=== PATIENT | male | born 1940 | race Caucasian/White ===

== ENCOUNTER 2017-12-30 17:35 | Observation (INO) | payer OTHER ==
--- OUTSIDE RECORDS SUMMARY | 2017-12-30 17:37 | XMS REPORT | Clinical Summary ---
:1940 Author Organization [facility] Address [address] [place] [address] Care Team Providers Name Role Phone Jan Holden MD Primary Care Provider Allergies Active Allergy Reactions Severity Noted Date Comments No Known Drug Allergies 07/03/2016 Current Medications Prescription Sig. Disp. Refills Start Date End Date Status aspirin (ADULT LOW DOSE 81 mg once Active ASPIRIN) 81 MG enteric daily coated tablet ibuprofen-famotidine Take 1 Active (DUEXIS) 800-26.6 mg tablet as tablet needed by oral route. hydrochlorothiazide Take 1 Active (HYDRODIURIL) 25 MG tablet tablet every day by oral route. valsartan (DIOVAN) 320 Take 1 Active MG tablet tablet every day by oral route. metoprolol tartrate Take 1 180 tablet 3 02/09/2017 Active (LOPRESSOR) 50 mg tablet tablet (50 mg total) by mouth 2 (two) times a day. simvastatin (ZOCOR) 40 Take 1 90 tablet 3 03/11/2017 Active MG tabletIndications: tablet (40 Hyperlipidemia, mg total) unspecified by mouth hyperlipidemia type daily. metoprolol tartrate Take 100 mg 02/10/20 Discontinued (LOPRESSOR) 100 MG by mouth 2 17 tablet (two) times a day. metoprolol tartrate Take 1 02/10/20 Discontinued (LOPRESSOR) 50 MG tablet tablet 17 twice a day by oral route. simvastatin (ZOCOR) 40 Take 1 03/11/20 Discontinued MG tablet tablet 17 every day by oral route. Active Problems Problem Noted Date Carotid atherosclerosis Bilateral 07/03/2016 Coronary arteriosclerosis 07/03/2016 Dyslipidemia 07/03/2016 Essential hypertension 07/03/2016 Gastroesophageal reflux disease 07/03/2016 Peripheral arterial occlusive disease 07/03/2016 Presence of stent in coronary artery 07/03/2016 Encounters Date Type Specialty Care Team Description 03/11/2017 Refill Cardiology Radha Schmidt MA Med Refill 02/09/2017 Orders Only Cardiology Kandace Sherwood MA after 12/29/2016 Family History Medical History Relation Name Comments Heart disease Brother Lung cancer Father possible Heart disease Sister Relation Name Status Comments Brother (Age 68) Father Sister (Age 68) Social History Tobacco Use Types Packs/Day Years Used Date Former Smoker 23 Smokeless Tobacco: Never Used Alcohol Use Drinks/Week oz/Week Comments Yes occasional Sex Assigned at Date Recorded Not on file Last Filed Vital Signs Not on file Plan of Treatment Health Maintenance Due Date Last Done Comments SHINGRIX VACCINE (#1) 1991 ZOSTER VACCINE 2001 PNEUMOCOCCAL POLYSACCHARIDE VACCINE AGE 65 AND OVER 2006 PNEUMOCOCCAL-13 2006 INFLUENZA VACCINE 03/16/2018 Results Not on fileafter 12/29/2016 Insurance Payer Benefit Plan / Group Subscriber ID Type Phone Address COMMERCIAL MISC MISC COMMERCIAL xxxxxxxxxxxx Commercial MEDICARE MEDICARE PART A AND B xxxxxxxxxx Medicare [place], [place] Home: [address] [phone] [place], [place] [phone]
[2017-12-30] MEDS ORDERED: NA CHLORIDE 0.9% 500 ML ONE (18:39)
[2017-12-30] MEDS ORDERED: ONDANSETRON 4 MG/2 ML VIAL ONE (18:39)
[2017-12-30 18:49] LABS: Absolute Monocytes 0.3 K/uL (0.1-1.3); Absolute Neutrophil 13.3 K/uL (1.8-8.0); Basophils % 0.3 % (0-1.3); Eosinophils % 0.9 % (0-4.4); Hematocrit 43.4 % (39.6-49.0); Lymphocytes % 6.7 % (15.3-44.8); MCH 28.8 pg (27.0-35.0); MCV 86.9 fL (80-100); MPV 10.1 fL (7.6-11.3); Monocytes % 2.1 % (3.3-12.3); RBC Red Blood Cell Count 4.99 M/uL (4.33-5.43)
[2017-12-30 18:50] LABS: Potassium 3.5 mEq/L (3.6-5.0)
[2017-12-30 18:56] LABS: Albumin 4.5 g/dL (3.2-5.5); Bilirubin Direct 0.2 mg/dL (0-0.2); Bilirubin Total 0.8 mg/dL (0.3-1.2); Protein, Total 7.9 g/dL (6.0-8.3)
[2017-12-30 18:58] LABS: Urine Blood NEGATIVE (NEG); Urine Glucose NEGATIVE (NEG); Urine Protein NEGATIVE (NEG); Urine Specific Gravity 1.015 (1.005-1.030)
[2017-12-30 18:58] LABS: Urine Bacteria <20 /HPF (NONE SEEN); Urine Culture Reflex Order NOT NEEDED; Urine RBC NONE SEEN /HPF (NONE SEEN)
[2017-12-30 19:30] LABS: Blood Morphology Comment NOT SEEN (NOT SEEN); Platelet Estimate ADEQ; Urine White Blood Cell Casts OK
--- NOTE | 2017-12-30 20:05 | RAD REPORT ---
EXAM DESCRIPTION: RAD - Chest Single View - 12/30/2017 6:47 pm CLINICAL HISTORY: Chills, cough and congestion COMPARISON: February 2011 TECHNIQUE: AP portable chest image was obtained 1836 hours . FINDINGS: Normal lung volumes seen. No peripheral consolidation or failure finding. 12 millimeter ro unded mass in the left midlung field is superimposed on the posterior left seventh rib. The cortex of the rib is offset and this is believed to be callus and remodeling from a rib fracture. Correlation is needed with any history of rib fracture or posterior mid chest pain symptoms. Trachea is midline. Heart and vasculature are normal. No measurable pleural effusion and no pneumotho rax. No acute aortic findings suspected. IMPRESSION: No acute cardiopulmonary process. Small rounded mass in the left midlung field is believed to be callus formation and remodeling of the posterior left seventh rib fracture. Correlation is needed with matching history.
--- NOTE | 2017-12-30 20:12 | RAD REPORT ---
EXAM DESCRIPTION: CT - Abdomen Pelvis W Contrast - 12/30/2017 7:59 pm CLINICAL HISTORY: Abdominal pain, nausea, chills, dysuria, body aches, history of prostate and bladd er cancer and prior cholecystectomy COMPARISON: None. TECHNIQUE: Biphasic, helical CT imaging of the abdomen and pelvis was performed following 100 ml non -ionic IV contrast. Oral contrast was given. All CT scans are performed using dose optimization technique as appropriate and may include automated exposure control or mA/KV adjustment according to patient size. FINDINGS: No suspicious findings in the lung bases. The liver, spleen, and pancreas show no suspicious findings. Cholecystectomy clips are present. No bi liary tree dilatation. Symmetric renal function is seen with no hydronephrosis or suspicious renal mass. No pyelonephritis o r acute renal parenchymal process. No urinary bladder abnormality. Prostatectomy changes are present. No pelvic floor mass or lymphadenopathy. No dilated bowel loops or bowel wall thickening. No free air, free fluid or inflammatory stranding. No hernia, mass or bulky lymphadenopathy. No adrenal abnormality. Testicles are seen in the inguinal fatty tissues. No mass. No abnormal inguinal lymphadenopathy. There are several small inguinal lymph nodes present. No suspicious bony findings. IMPRESSION: No pyelonephritis, cystitis or other acute finding. Remainder the study, as detailed above, is without acute or suspicious finding.
[2017-12-30] MEDS ORDERED: FAMOTIDINE 20 MG/2 ML VIAL IV ONE (20:14)
[2017-12-30] MEDS ORDERED: NS KCL 20MEQ 1,000 ML IV ONE (20:14)
[2017-12-30] MEDS ORDERED: Levofloxacin500mg IV 500 MG/100 ML BAG IV ONE (20:14)
[2017-12-30] MEDS ORDERED: NA CHLORIDE 0.9% 1,000 ML ONE (20:15)
[2017-12-30] MEDS ORDERED: METRONIDAZOLE 500mg IVPB 500 MG/100 ML BAG IV ONE (20:15)
--- NOTE | 2017-12-30 20:15 | EDPHYS ---
Physician Documentation [facility] Name: Andrei Escobar Age: 77 yrs Sex: Male : 1940 Arrival Date: 12/30/2017 Time: 17:38 Bed 2 Private MD: Jan Holden T ED Physician Yohan Johnson HPI: 12/30 18:35 This 77 yrs old Male presents to ER via Ambulatory with complaints of rn Nausea/Vomiting/Diarrhea, Chills,Body Aches. 18:35 The patient presents to the emergency department with nausea, vomiting, diarrhea. rn Onset: The symptoms/episode began/occurred today. Possible causes: unknown. Associated signs and symptoms: Pertinent positives: diarrhea, nausea, vomiting. Severity of symptoms: At their worst the symptoms were moderate in the emergency department the symptoms have improved. The patient has not experienced similar symptoms in the past. Reports sudden onset of chills, nausea/vomiting/diarrhea, began today, only a little abd discomfort, no prostate, + increased urinary frequency, no chest pain, + mild cough, + hx of smoking. . Historical: - Allergies: 18:01 No Known Allergies; aj - Home Meds: 18:01 aspirin 81 mg Oral chew [Active]; Hydrochlorothiazide Oral [Active]; losartan Oral aj [Active]; Metoprolol Tartrate Oral [Active]; Simvastatin Oral [Active]; - PMHx: 18:01 Hyperlipidemia; Hypertension; aj - PSHx: 18:01 prostate and bladder cancer surgery; Cholecystectomy; Heart stents; Knee surgery; aj - Immunization history:: Adult Immunizations up to date. - Social history:: Smoking status: Patient/guardian denies using tobacco. - Family history:: not pertinent. - Hospitalizations: : No recent hospitalization is reported. ROS: 18:35 Constitutional: Negative for fever, and weight loss, Eyes: Negative for injury, pain, rn redness, and discharge, Neck: Negative for injury, pain, and swelling, Cardiovascular: Negative for chest pain, palpitations, and edema, Respiratory: + cough, neg for sob Abdomen/GI: Negative for constipation MS/Extremity: Negative for injury and deformity, Skin: Negative for injury, rash, and discoloration, Neuro: Negative for headache, numbness, tingling, and seizure, + generalized weakness Exam: 18:35 Constitutional: This is a well developed, well nourished patient who is awake, alert, rn and in no acute distress. Head/Face: Normocephalic, atraumatic. Eyes: Pupils equal round and reactive to light, extra-ocular motions intact. Lids and lashes normal. Conjunctiva and sclera are non-icteric and not injected. Cornea within normal limits. Periorbital areas with no swelling, redness, or edema. ENT: dry MM, no stridor Neck: Trachea midline, no thyromegaly or masses palpated, and no cervical lymphadenopathy. Supple, full range of motion without nuchal rigidity, or vertebral point tenderness. No Meningismus. Cardiovascular: tachycardic, regular, no murmur Respiratory: + mild tachypnea, faint exp wheezing, no retractions, speaking full sentences Abdomen/GI: soft, mild lower abd tenderness, no rebound/masses MS/ Extremity: Pulses equal, no cyanosis. Neurovascular intact. Full, normal range of motion. Equal circumference. Neuro: Awake and alert, GCS 15, oriented to person, place, time, and situation. Cranial nerves II-XII grossly intact. Motor strength 5/5 in all extremities. Sensory grossly intact. Vital Signs: 18:01 BP 186 / 92; Pulse 125; Resp 26; Temp 99.7; Pulse Ox 99% on R/A; Weight 123.38 kg; aj Height 6 ft. 2 in. (187.96 cm); 19:36 BP 160 / 87; Pulse 122; Resp 26; Temp 99.6; Pulse Ox 96% ; bp 22:00 BP 137 / 66; Pulse 112; Resp 25; Pulse Ox 96% on R/A; bp 18:01 Body Mass Index 34.92 (123.38 kg, 187.96 cm) aj MDM: 18:05 Patient medically screened. rn 19:57 Data reviewed: vital signs, nurses notes, lab test result(s), EKG, radiologic studies, cheryl CT scan, plain films. 12/30 18:14 Order name: Basic Metabolic Panel; Complete Time: 18:58 rn 12/30 18:14 Order name: CBC with Diff; Complete Time: 19:52 rn 12/30 18:14 Order name: Creatinine for Radiology; Complete Time: 18:58 rn 12/30 18:14 Order name: Hepatic Function; Complete Time: 18:58 rn 12/30 18:14 Order name: Lipase; Complete Time: 18:58 12/30 18:14 Order name: Urine Microscopic Only; Complete Time: 19:03 12/30 18:14 Order name: Procalcitonin; Complete Time: 19:52 12/30 18:14 Order name: Lactate; Complete Time: 18:58 12/30 18:14 Order name: Blood Culture Adult (2) 12/30 18:14 Order name: Flu; Complete Time: 18:58 12/30 18:14 Order name: Troponin (emerg Dept Use Only); Complete Time: 19:03 12/30 18:46 Order name: Urine Dipstick--Ancillary (enter results); Complete Time: 19:03 12/30 19:29 Order name: CBC Smear Scan; Complete Time: 19:52 [facility] 12/30 19:55 Order name: BNP [facility] 12/30 18:14 Order name: XRAY Chest (1 view); Complete Time: 20:14 12/30 18:14 Order name: CT Abd/Pelvis - W/Contrast; Complete Time: 20:14 12/30 19:55 Order name: Ckmb [facility] 12/30 19:55 Order name: CPK [facility] 12/30 19:55 Order name: Magnesium [facility] 12/30 19:55 Order name: PT-INR [facility] 12/30 19:55 Order name: Ptt, Activated [facility] 12/30 20:13 Order name: US Extremity Venous Unilateral Ltd [facility] 12/30 21:39 Order name: Lactate Sepsis 2 HR Follow-up [facility] 12/30 18:14 Order name: IV Saline Lock; Complete Time: 18:34 12/30 18:14 Order name: Labs collected and sent; Complete Time: 18:34 12/30 18:14 Order name: Urine Dipstick-Ancillary (obtain specimen); Complete Time: 18:54 12/30 18:14 Order name: EKG; Complete Time: 18:15 12/30 18:14 Order name: EKG - Nurse/Tech; Complete Time: 18:34 12/30 19:55 Order name: Cardiac monitoring; Complete Time: 19:58 [facility] 12/30 19:55 Order name: O2 Per Protocol; Complete Time: 19:58 [facility] 12/30 19:55 Order name: O2 Sat Monitoring; Complete Time: 19:58 cheryl Administered Medications: 18:35 Drug: NS 0.9% 500 ml Route: IV; Rate: bolus; Site: right antecubital; hb 22:09 Follow up: IV Status: Completed infusion; IV Intake: 500ml bp 18:35 Drug: Zofran 4 mg Route: IVP; Site: right antecubital; hb 22:09 Follow up: Response: Nausea is decreased bp 19:57 Not Given (Duplicate Order): NS 0.9% 1000 ml IV at 75 ml/hr continuous cheryl 20:11 Not Given (Duplicate Order): levofloxacin 500 mg 100 ml IVPB once over 60 mins cheryl 20:11 Not Given (Duplicate Order): Flagyl 500 mg 100 ml IVPB at 200 ml/hr once over 30 mins cheryl 20:15 Drug: NS 0.9% 1000 ml Route: IV; Rate: 1 bolus; Site: right antecubital; bp 21:45 Follow up: IV Status: Infusion continued upon admission bp 20:15 Drug: Pepcid 20 mg Route: IVP; Site: right antecubital; bp 21:06 Follow up: Response: No adverse reaction bp 20:15 Drug: NS 0.9% with KCl 20 mEq/L 1000 ml Route: IV; Rate: 125 mg/hr; Site: right bp antecubital; 21:45 Follow up: IV Status: Infusion continued upon admission bp 20:30 Drug: Zosyn 3.375 grams Route: IVPB; Infused Over: 60 mins; Site: right hand; bp 21:45 Follow up: IV Status: Completed infusion bp 20:30 Drug: Tylenol 650 mg Route: PO; bp 21:07 Follow up: Response: No adverse reaction bp 20:30 Drug: Potassium Chloride 20 mEq Route: PO; bp 21:07 Follow up: Response: No adverse reaction bp 21:15 Drug: vancoMYCIN 1 grams Route: IVPB; Infused Over: 2 hrs; Site: right hand; bp 21:46 Follow up: IV Status: Infusion continued upon admission bp Disposition: 12/30/17 20:14 Hospitalization ordered by Mihai Salinas for Inpatient Admission. Preliminary diagnosis are Cellulitis and acute lymphangitis of other parts of limb, Fever, unspecified, Weakness, Hypokalemia, Hypo-osmolality and hyponatremia. - Bed requested for Telemetry/MedSurg (Inpatient). - Status is Inpatient Admission. bp - Condition is Stable. - Problem is new. - Symptoms have improved. UTI on Admission? No Signatures: Dispatcher [employer] EDMS Freida Gleason RN Elizabeth Pratt RN RN aj Anderson, Corey, MD MD cha Nieto, Roman, MD MD rn Baxter, Heather, RN RN hb Peltier, Brian RN Lisa Orourke Corrections: (The following items were deleted from the chart) 20:15 20:14 Hospitalization Ordered by Mihai Salinas MD for Inpatient Admission. Preliminary [facility] diagnosis is Cellulitis and acute lymphangitis of other parts of limb; Fever, unspecified; Weakness. Bed requested for Telemetry/MedSurg (Inpatient). Status is Inpatient Admission. Condition is Stable. Problem is new. Symptoms have improved. UTI on Admission? No. cheryl 20:27 20:15 12/30/2017 20:14 Hospitalization Ordered by Mihai Salinas MD for Inpatient eb Admission. Preliminary diagnosis is Cellulitis and acute lymphangitis of other parts of limb; Fever, unspecified; Weakness; Hypokalemia; Hypo-osmolality and hyponatremia. Bed requested for Telemetry/MedSurg (Inpatient). Status is Inpatient Admission. Condition is Stable. Problem is new. Symptoms have improved. UTI on Admission? No. cheryl 20:28 20:27 12/30/2017 20:14 Hospitalization Ordered by Mihai Salinas MD for Inpatient eb Admission. Preliminary diagnosis is Cellulitis and acute lymphangitis of other parts of limb; Fever, unspecified; Weakness; Hypokalemia; Hypo-osmolality and hyponatremia. Bed requested for Telemetry/MedSurg (Inpatient). Status is Inpatient Admission. Condition is Stable. Problem is new. Symptoms have improved. UTI on Admission? No. eb 21:04 20:28 12/30/2017 20:14 Hospitalization Ordered by Mihai Salinas MD for Inpatient eb Admission. Preliminary diagnosis is Cellulitis and acute lymphangitis of other parts of limb; Fever, unspecified; Weakness; Hypokalemia; Hypo-osmolality and hyponatremia. Bed requested for Telemetry/MedSurg (Inpatient). Status is Inpatient Admission. Condition is Stable. Problem is new. Symptoms have improved. UTI on Admission? No. eb 21:09 21:04 12/30/2017 20:14 Hospitalization Ordered by Mihai Salinas MD for Inpatient kl Admission. Preliminary diagnosis is Cellulitis and acute lymphangitis of other parts of limb; Fever, unspecified; Weakness; Hypokalemia; Hypo-osmolality and hyponatremia. Bed requested for Telemetry/MedSurg (Inpatient). Status is Inpatient Admission. Condition is Stable. Problem is new. Symptoms have improved. UTI on Admission? No. eb 22:21 21:09 12/30/2017 20:14 Hospitalization Ordered by Mihai Salinas MD for Inpatient bp Admission. Preliminary diagnosis is Cellulitis and acute lymphangitis of other parts of limb; Fever, unspecified; Weakness; Hypokalemia; Hypo-osmolality and hyponatremia. Bed requested for Telemetry/MedSurg (Inpatient). Status is Inpatient Admission. Condition is Stable. Problem is new. Symptoms have improved. UTI on Admission? No. kl
--- NOTE | 2017-12-30 20:15 | ER ---
Nurse's Notes [facility] Name: Andrei Escobar Age: 77 yrs Sex: Male : 1940 Arrival Date: 12/30/2017 Time: 17:38 Bed 2 Private MD: Jan Holden T Diagnosis: Cellulitis and acute lymphangitis of other parts of limb;Fever, unspecified;Weakness;Hypokalemia;Hypo-osmolality and hyponatremia Presentation: 12/30 18:00 Presenting complaint: Patient states: Reports nausea, chills, frequent urination, and aj body aches that started today. Transition of care: patient was not received from another setting of care. Onset of symptoms was December 30, 2017. Care prior to arrival: None. 18:00 Method Of Arrival: Ambulatory aj 18:00 Acuity: CARLYN 3 aj 21:52 Initial Sepsis Screen: Does the patient meet any 2 criteria? HR > 90 bpm. No. Patient's bp initial sepsis screen is negative. Does the patient have a suspected source of infection? No. Patient's initial sepsis screen is negative. Triage Assessment: 18:01 General: Appears in no apparent distress. uncomfortable, ill, Behavior is calm, aj cooperative, appropriate for age. Pain: Complains of pain in body aches. Neuro: Level of Consciousness is awake, alert, obeys commands, Oriented to person, place, time, situation, Appropriate for age Gait is unsteady. Respiratory: Airway is patent Respiratory effort is even, unlabored, Respiratory pattern is symmetrical, tachypnea. GI: Reports nausea. Derm: Skin is intact, is healthy with good turgor, Skin is pink, warm \T\ dry. normal. Historical: - Allergies: 18:01 No Known Allergies; aj - Home Meds: 18:01 aspirin 81 mg Oral chew [Active]; Hydrochlorothiazide Oral [Active]; losartan Oral aj [Active]; Metoprolol Tartrate Oral [Active]; Simvastatin Oral [Active]; - PMHx: 18:01 Hyperlipidemia; Hypertension; aj - PSHx: 18:01 prostate and bladder cancer surgery; Cholecystectomy; Heart stents; Knee surgery; aj - Immunization history:: Adult Immunizations up to date. - Social history:: Smoking status: Patient/guardian denies using tobacco. - Family history:: not pertinent. - Hospitalizations: : No recent hospitalization is reported. Screenin:29 Abuse screen: Denies threats or abuse. Denies injuries from another. Nutritional hb screening: No deficits noted. Tuberculosis screening: No symptoms or risk factors identified. Fall Risk Total Walters Fall Scale indicates Low Risk Score (25-44 pts). Fall prevention measures have been instituted. Side Rails Up X 2 Frequent Obs/Assesments occuring Family Present and informed to notify staff if they need to leave bedside As available Patient and Family Educated on Fall Prevention Program and strategies. Assessment: 18:10 General: Appears in no apparent distress. Behavior is calm, cooperative. Pain: Denies hb pain. Neuro: Level of Consciousness is awake, alert, obeys commands, Oriented to person, place, time, situation. Cardiovascular: Heart tones S1 S2 present Capillary refill < 3 seconds Patient's skin is warm and dry. Respiratory: Airway is patent Trachea midline Respiratory effort is even, unlabored, Respiratory pattern is regular, symmetrical, Breath sounds are clear bilaterally. GI: Abdomen is obese, Bowel sounds present X 4 quads. Abd is soft and non tender X 4 quads. Reports diarrhea, nausea, vomiting. : No signs and/or symptoms were reported regarding the genitourinary system. EENT: No signs and/or symptoms were reported regarding the EENT system. Derm: No signs and/or symptoms reported regarding the dermatologic system. Skin is intact, is healthy with good turgor, Skin is pink, warm \T\ dry. Musculoskeletal: No signs and/or symptoms reported regarding the musculoskeletal system. 18:26 Reassessment: Pt finished drinking oral contrast, CT notified. hb 19:00 Reassessment: RECD REPORT FROM LILLIE LOPEZ. 77YO WM P/W MALAISE/FEVER/CHILLS. PO CONTRAST bp COMPLETED, CT PENDING, VS STABLE ON MONITOR, MILD ST NOTED. 19:45 Reassessment: PT TO CT WITH PHOTOGRAPHIC COLORIST. bp 20:25 Reassessment: PT RETURNED FROM CT. U/S AT B/S. bp Vital Signs: 18:01 BP 186 / 92; Pulse 125; Resp 26; Temp 99.7; Pulse Ox 99% on R/A; Weight 123.38 kg; aj Height 6 ft. 2 in. (187.96 cm); 19:36 BP 160 / 87; Pulse 122; Resp 26; Temp 99.6; Pulse Ox 96% ; bp 22:00 BP 137 / 66; Pulse 112; Resp 25; Pulse Ox 96% on R/A; bp 18:01 Body Mass Index 34.92 (123.38 kg, 187.96 cm) ED Course: 17:38 Patient arrived in ED. mr 17:39 Jan Holden MD is Private Physician. mr 18:00 Triage completed. aj 18:01 Arm band placed on right wrist. Patient placed in an exam room. aj 18:05 Eliud Rivera MD is Attending Physician. rn 18:15 Inserted saline lock: 20 gauge in right antecubital area, using aseptic technique. hb Blood collected. 18:30 Oral contrast reported to be complete. kw1 18:31 Patient has correct armband on for positive identification. Placed in gown. Bed in low hb position. Call light in reach. Side rails up X 1. 18:47 XRAY Chest (1 view) In Process Unspecified. EDMS 19:06 Jerod Gleason, JESSICA is Primary Nurse. bp 19:24 Attending Physician role handed off by Eliud Rivera MD cheryl 19:24 Yohan Johnson MD is Attending Physician. cheryl 19:[address] nj 19:57 CT completed. Patient tolerated procedure well. Patient moved back from CT. nj 19:59 CT Abd/Pelvis - W/Contrast In Process Unspecified. EDMS 20:13 Mihai Salinas MD is Hospitalizing Provider. cheryl 20:44 Ultrasound completed. Patient tolerated well. cy 20:44 US Extremity Venous Unilateral Ltd In Process Unspecified. EDMS 21:52 No provider procedures requiring assistance completed. Patient admitted, IV remains in bp place. Administered Medications: 18:35 Drug: NS 0.9% 500 ml Route: IV; Rate: bolus; Site: right antecubital; hb 22:09 Follow up: IV Status: Completed infusion; IV Intake: 500ml bp 18:35 Drug: Zofran 4 mg Route: IVP; Site: right antecubital; hb 22:09 Follow up: Response: Nausea is decreased bp 19:57 Not Given (Duplicate Order): NS 0.9% 1000 ml IV at 75 ml/hr continuous cheryl 20:11 Not Given (Duplicate Order): levofloxacin 500 mg 100 ml IVPB once over 60 mins cheryl 20:11 Not Given (Duplicate Order): Flagyl 500 mg 100 ml IVPB at 200 ml/hr once over 30 mins cheryl 20:15 Drug: NS 0.9% 1000 ml Route: IV; Rate: 1 bolus; Site: right antecubital; bp 21:45 Follow up: IV Status: Infusion continued upon admission bp 20:15 Drug: Pepcid 20 mg Route: IVP; Site: right antecubital; bp 21:06 Follow up: Response: No adverse reaction bp 20:15 Drug: NS 0.9% with KCl 20 mEq/L 1000 ml Route: IV; Rate: 125 mg/hr; Site: right bp antecubital; 21:45 Follow up: IV Status: Infusion continued upon admission bp 20:30 Drug: Zosyn 3.375 grams Route: IVPB; Infused Over: 60 mins; Site: right hand; bp 21:45 Follow up: IV Status: Completed infusion bp 20:30 Drug: Tylenol 650 mg Route: PO; bp 21:07 Follow up: Response: No adverse reaction bp 20:30 Drug: Potassium Chloride 20 mEq Route: PO; bp 21:07 Follow up: Response: No adverse reaction bp 21:15 Drug: vancoMYCIN 1 grams Route: IVPB; Infused Over: 2 hrs; Site: right hand; bp 21:46 Follow up: IV Status: Infusion continued upon admission bp Intake: 22:09 IV: 500ml; Total: 500ml. bp Outcome: 20:14 Decision to Hospitalize by Provider. cheryl 22:03 Admitted to Med/surg accompanied by tech, family with patient, via stretcher, room 410, bp with chart, Report called to LUCINDA LOPEZ 22:03 Condition: stable 22:03 Discharge instructions given to patient, Instructed on the need for admit. 22:21 Patient left the ED. bp Signatures: Dispatcher [employer] EDMS Elizabeth Baer RN RN aj Anderson, Corey, MD MD cha Rivera, Maria mr Nieto, Roman, MD MD rn Baxter, Heather, RN RN hb Jordan, Nathan nj Peltier, Brian, RN RN bp Freida Barragan kw1 Davis Gonzalez
[2017-12-30 20:24] LABS: Magnesium 1.9 mg/dL (1.8-2.5)
[2017-12-30 20:30] LABS: CKMB Creatine Kinase MB 1.2 ng/ml (0.3-4.0)
[2017-12-30] MEDS ORDERED: POTASSIUM CL SA 10 MEQ TAB PO ONE (20:31)
[2017-12-30] MEDS ORDERED: VANCOMYCIN 1 GM/VIAL ONE (20:31)
[2017-12-30] MEDS ORDERED: ACETAMINOPHEN 325 MG TABLET ONE ×2 (20:31→21:18)
[2017-12-30] MEDS ORDERED: PIPER/TAZO/NS 3.375gm 3.375 GM/100 ML BAG ONE (20:31)
[2017-12-30] MEDS ORDERED: NA CHLORIDE 0.9% 250 ML ONE (20:31)
[2017-12-30 20:32] LABS: Protime INR 1.11
--- NOTE | 2017-12-30 21:01 | RAD REPORT ---
EXAM DESCRIPTION: VAS - Extremity Venous Uni Ltd - 12/30/2017 8:45 pm CLINICAL HISTORY: Leg pain and swelling COMPARISON: None. TECHNIQUE: Real-time sonographic evaluation of the right lower extremity deep venous systems was per formed. FINDINGS: Normal compressibility, flow augmentation, phasic flow and spontaneous flow are identified in the right lower extremity deep venous system. No intraluminal filling defects seen. IMPRESSION: No DVT in the right lower extremity.
--- NOTE | 2017-12-30 21:08 | P.HP ---
Certification for Inpatient Patient admitted to: Inpatient With expected LOS: >2 Midnights Practitioner: I am a practitioner with admitting privileges, knowledge of patient current condition, hospital course, and medical plan of care. Services: Services provided to patient in accordance with Admission requirements found in Title 42 Section 412.3 of the Code of Federal Regulations Patient History Date of Service: 12/30/17 Reason for admission: cellulitis History of Present Illness: Mr Escobar is a 77 years old male with history of HTN, CAD, dyslipidemia, who start today with nausea, vomiting, diarrhea, frequent urination, associated with chills and generalized body ache and weakness. He denied any cough or SOB. He also noticed that his right leg become swelling, and red. He has had mild pain along his leg as well. Work up in ER was remarkable for leukocytosis 14.8K , decreased sodium and chloride level, elevated lactic acid but normal procalcitonin. His temp at arrival was 99.7F, BP 186/92. Allergies No Known Allergies Allergy (Unverified 02/11/16 20:20) Home Medications: Aspirin [Ecotrin 81 MG] 81 mg PO DAILY 02/12/16 Famotidine [Pepcid AC] 10 mg PO DAILY PRN 02/12/16 Metoprolol Tartrate [Lopressor*] 50 mg PO BID 02/12/16 Simvastatin 40 mg PO DAILY 02/12/16 Amox/Clavulanate [Augmentin 875-125 Tab] 1 each PO BID #14 tab 02/14/16 Doxycycline Monohydrate 100 mg PO BID #14 tablet 02/14/16 Mupirocin Oint [Bactroban 2% Ointment*] 1 appl TOP BID #60 tube 02/14/16 - Past Medical/Surgical History Diabetic: No -: HTN -: Hyperlipidemia -: PVD -: CAD, Cardiology -: Prostate/Bladder Cancer post surgery. -: Prostate/Bladder surgery 2005 -: Cholecystectomy -: Bilateral inguinal hernia RPAIR >10YRS -: Heart stent X 2 2003 -: TONSILECTOMY -: SKIN CANCER REMOVAL -: LEFT WRIST FRACTURE REPAIR -: APPENDECTOMY>10 Psychosocial/ Personal History: of 46 years, Children-1, Retired [employer] employee. - Family History Mother -: Other (see notes) Sister -: Heart disease, Cancer - Social History Alcohol use: Yes CD- Drugs: No Caffeine use: No Place of Residence: Home Review of Systems 10-point ROS is otherwise unremarkable Physical Examination - Physical Exam General: Alert, In no apparent distress HEENT: Atraumatic, PERRLA, Mucous membr. moist/pink, EOMI, Sclerae nonicteric Neck: Supple, 2+ carotid pulse no bruit, No LAD, Without JVD or thyroid abnormality Respiratory: Clear to auscultation bilaterally, Normal air movement Cardiovascular: Regular rate/rhythm, Normal S1 S2 Gastrointestinal: Normal bowel sounds, No tenderness Musculoskeletal: No tenderness Integumentary: Tenderness/swelling (right leg), Erythema, Warmth Neurological: Normal speech, Normal strength at 5/5 x4 extr, Normal tone, Normal affect Lymphatics: No axilla or inguinal lymphadenopathy - Studies Laboratory Data (last 24 hrs) 12/30/17 20:14: PT 13.1 H, INR 1.11, APTT 25.3 12/30/17 18:20: Magnesium 1.9 12/30/17 18:20: B-Natriuretic Peptide 53 12/30/17 18:20: Creatinine 1.13 12/30/17 18:20: WBC 14.8 H, Hgb 14.4, Hct 43.4, Plt Count 200 12/30/17 18:20: Sodium 130 L, Potassium 3.5 L, BUN 20, Creatinine 1.14, Glucose 125 H, Total Bilirubin 0.8, AST 28, ALT 27, Alkaline Phosphatase 96, Lipase 28 Microbiology Data (last 24 hrs): 12/30/17 18:20 Nasopharnyx Influenza Type A Antigen Screen - Final 12/30/17 18:20 Nasopharnyx Influenza Type B Antigen Screen - Final Assessment and Plan - Problems (Diagnosis) (1) Hyponatremia Current Visit: Yes Status: Acute (2) Cellulitis of right leg Onset Date: 02/14/16 Current Visit: No Status: Acute (3) HTN (hypertension) Onset Date: 02/14/16 Current Visit: No Status: Chronic Qualifiers: Hypertension type: essential hypertension Qualified Code(s): I10 - Essential (primary) hypertension - Plan Mr Escobar will be admitted to the hospital due to right leg cellulitis. Venous US right lower extremity negative for DVT. Will start empiric treatment with IV Vancomycin and Zosyn. Will order IV normal saline, since seems to be volume depleted, although, his BP is on the higher side. Will resume his home medication once verified. - Advance Directives Does patient have a Living Will: No Does patient have a Durable POA for Healthcare: No - Code Status/Comfort Care Code Status Assessed: Yes Code Status: Full Code
[2017-12-30] MEDS ORDERED: ONDANSETRON 4 MG/2 ML VIAL IV PRN (22:38)
[2017-12-30] MEDS ORDERED: ACETAMINOPHEN 500 MG TAB PO PRN (22:38)
[2017-12-30] MEDS: NA CHLORIDE 0.9% 1,000 ML IV SCH (22:38)
[2017-12-30] MEDS ORDERED: VANCOMYCIN 1GM/D5W 1 GM/200 ML BAG IV ONE (23:00)
[2017-12-30 23:50] VITALS: BMI 35.6
[2017-12-31] MEDS ORDERED: PIPER/TAZO/NS 3.375gm 3.375 GM/100 ML BAG ONE (05:28)
[2017-12-31] MEDS: PIPER/TAZO/NS 3.375gm 3.375 GM/100 ML BAG IVPB SCH ×2 (06:00)
[2017-12-31 06:26] LABS: Albumin 3.6 g/dL (3.2-5.5); Bilirubin Total 1.3 mg/dL (0.3-1.2); Protein, Total 6.4 g/dL (6.0-8.3)
--- NOTE | 2017-12-31 06:27 | EKG ---
Test Date: 2017-12-30 Test Time: 18:05:29 Qa Tester: LUIS MEASUREMENT RESULTS: Intervals: Rate: 120 MO: 146 QRSD: 74 QT: 324 QTc: 457 [place]: P: 32 MO: 146 QRS: 9 T: 91 INTERPRETIVE STATEMENTS: Sinus tachycardia Possible Left atrial enlargement T wave abnormality, consider lateral ischemia Abnormal ECG Compared to ECG 02/21/2011 09:13:50 T-wave abnormality now present Possible ischemia now present Left ventricular hypertrophy no longer present Electronically Signed On 12-31-17 06:25:59 CDT by Brady Cramer
[2017-12-31] MEDS: NA CHLORIDE 0.9% 1,000 ML IV SCH ×2 (08:38→20:54)
[2017-12-31] MEDS ORDERED: PIPER/TAZO/NS 3.375gm 3.375 GM/100 ML BAG IVPB SCH ×2 (09:00)
[2017-12-31] MEDS: ENOXAPARIN 40 MG/0.4 ML SQ SCH (10:12)
--- NOTE | 2017-12-31 13:01 | P.PN ---
Subjective Date of Service: 12/31/17 Chief Complaint: cellulitis Pt seen and examined at bedside with RN. Chart reviewed. Currently Pt is feeling better than before, but had fever of 101 in the ED and has been feeling weak as well. Denies any N/V but No CP or SOB. Blood Culture + for Gram + cocci and chain x 2 Review of Systems General: As per HPI Physical Examination - Vital Signs Temperature: 99.3 F Blood Pressure: 179/74 Pulse: 81 Respirations: 18 Pulse Ox (%): 100 - Physical Exam General: Alert, In no apparent distress HEENT: Atraumatic, PERRLA, EOMI Neck: Supple, JVD not distended Respiratory: Clear to auscultation bilaterally, Normal air movement Cardiovascular: Regular rate/rhythm, Normal S1 S2 Gastrointestinal: Normal bowel sounds, No tenderness Musculoskeletal: Erythema, Tenderness Integumentary: No rashes Neurological: Normal speech, Normal tone, Normal affect Lymphatics: No axilla or inguinal lymphadenopathy - Studies Laboratory Data (last 24 hrs) 12/30/17 20:14: PT 13.1 H, INR 1.11, APTT 25.3 12/30/17 18:20: Magnesium 1.9 12/30/17 18:20: B-Natriuretic Peptide 53 12/30/17 18:20: Creatinine 1.13 12/30/17 18:20: WBC 14.8 H, Hgb 14.4, Hct 43.4, Plt Count 200 12/30/17 18:20: Sodium 130 L, Potassium 3.5 L, BUN 20, Creatinine 1.14, Glucose 125 H, Total Bilirubin 0.8, AST 28, ALT 27, Alkaline Phosphatase 96, Lipase 28 Microbiology Data (last 24 hrs): 12/30/17 18:20 Nasopharnyx Influenza Type A Antigen Screen - Final 12/30/17 18:20 Nasopharnyx Influenza Type B Antigen Screen - Final Medications List Reviewed: Yes Assessment & Plan - Problems (Diagnosis) (1) Sepsis Current Visit: Yes Status: Acute Plan: Sepsis with blood culture + for Gram + cluster and chains -IV vanc and doxy for now -IV fluids -F/u with Culture for sensitivity. Qualifiers: Sepsis type: sepsis due to unspecified organism Qualified Code(s): A41.9 - Sepsis, unspecified organism (2) Hyponatremia Current Visit: Yes Status: Acute Plan: Initial NA was 130. -IV fluids improved to 135 now (3) HTN (hypertension) Onset Date: 02/14/16 Current Visit: No Status: Chronic Qualifiers: Hypertension type: essential hypertension Qualified Code(s): I10 - Essential (primary) hypertension (4) PVD (peripheral vascular disease) Onset Date: 02/14/16 Current Visit: No Status: Chronic Discharge Plan: Home Plan to discharge in: 48 Hours - Code Status/Comfort Care Code Status Assessed: Yes Critical Care: No
[2017-12-31] MEDS: HYDRALAZINE HCL 20 MG/ML VIAL IV PRN (14:57)
[2017-12-31] MEDS ORDERED: cloNIDine HCl 0.1 MG TAB PO ONE (17:00)
[2017-12-31] MEDS ORDERED: VANCOMYCIN 2 GM in NA CHLORIDE 0.9% 500 ML IVPB SCH (17:00)
[2017-12-31] MEDS: VANCOMYCIN 2 GM in NA CHLORIDE 0.9% 500 ML IVPB SCH (17:14)
[2017-12-31] MEDS ORDERED: PANTOPRAZOLE 40 MG INJ IVP ONE (19:21)
[2017-12-31] MEDS ORDERED: SODIUM CHLORIDE 0.9% 10ML INJ IV PRN (19:21)
[2017-12-31] MEDS: ATORVASTATIN 40 MG TAB PO SCH (20:55)
[2017-12-31] MEDS: METOPROLOL TAR 50 MG TAB PO SCH (20:55)
[2017-12-31] MEDS: DOXYCYCLINE 100 MG in NA CHLORIDE 0.9% 100 ML IVPB SCH (20:56)
[2018-01-01] MEDS: NA CHLORIDE 0.9% 1,000 ML IV SCH (04:38)
[2018-01-01] MEDS: HYDRALAZINE HCL 20 MG/ML VIAL IV PRN ×2 (04:55→22:07)
[2018-01-01 06:33] LABS: Absolute Lymphocytes (CBC) 0.9 K/uL (0.7-4.9); Absolute Monocytes 0.7 K/uL (0.1-1.3); Absolute Neutrophil 15.7 K/uL (1.8-8.0); Basophils % 0.5 % (0-1.3); Eosinophils % 0.5 % (0-4.4); Hematocrit 37.1 % (39.6-49.0); MCH 29.1 pg (27.0-35.0); MCV 86.9 fL (80-100); MPV 9.6 fL (7.6-11.3); Monocytes % 3.9 % (3.3-12.3); RBC Red Blood Cell Count 4.27 M/uL (4.33-5.43)
[2018-01-01 06:59] LABS: Blood Morphology Comment NOT SEEN (NOT SEEN); Platelet Estimate ADEQ
[2018-01-01 07:14] LABS: Albumin 3.1 g/dL (3.2-5.5); Bilirubin Total 1.1 mg/dL (0.3-1.2); Potassium 3.7 mEq/L (3.6-5.0); Protein, Total 5.9 g/dL (6.0-8.3)
[2018-01-01] MEDS ORDERED: POTASSIUM 25 MEQ EFFERV TAB PO ONE (08:00)
[2018-01-01] MEDS: DOXYCYCLINE 100 MG in NA CHLORIDE 0.9% 100 ML IVPB SCH (09:22)
[2018-01-01] MEDS: ENOXAPARIN 40 MG/0.4 ML SQ SCH (09:23)
[2018-01-01] MEDS: METOPROLOL TAR 50 MG TAB PO SCH ×2 (09:23→22:06)
[2018-01-01] MEDS: VALSARTAN 160 MG TAB PO SCH (09:25)
[2018-01-01] MEDS: ASPIRIN EC 81 MG TAB PO SCH (09:26)
--- NOTE | 2018-01-01 10:10 | P.PN ---
Subjective Date of Service: 01/01/18 Chief Complaint: cellulitis Subjective: Improving (Patient is improving no significant pain culture is also pending) Review of Systems Unremarkable Physical Examination - Vital Signs Temperature: 99.0 F Blood Pressure: 142/54 Pulse: 71 Respirations: 16 Pulse Ox (%): 96 - Physical Exam General: Alert, Oriented x3 Respiratory: Clear to auscultation bilaterally Cardiovascular: No edema Musculoskeletal: Other (His lab right leg looks normal there is no evidence of cellulitis) - Studies Medications List Reviewed: Yes Assessment & Plan - Problems (Diagnosis) (1) Cellulitis of right leg Onset Date: 12/31/17 Current Visit: Yes Status: Acute Plan: Patient is 77 years of age admitted with cellulitis of the right leg is clinically improving cultures are pending Dc doxycycline continue with vancomycin and p.o. clindamycin ambulate possible discharge tomorrow patient's white count is still elevated this hypernatremic meds and labs all reviewed is no current evidence of cellulitis on the physical examination will await for cultures possible discharge tomorrow
[2018-01-01] MEDS: VANCOMYCIN 2 GM in NA CHLORIDE 0.9% 500 ML IVPB SCH (11:55)
[2018-01-01] MEDS: CLINDAMYCIN HCL 150 MG CAP PO SCH ×3 (12:49→23:34)
[2018-01-01] MEDS: ATORVASTATIN 40 MG TAB PO SCH (22:05)
[2018-01-02] MEDS ORDERED: PANTOPRAZOLE 40 MG INJ IVP ONE (00:03)
[2018-01-02] MEDS ORDERED: SODIUM CHLORIDE 0.9% 10ML INJ IV PRN (00:03)
[2018-01-02 01:14] VITALS: O2SAT 97
[2018-01-02 04:58] LABS: Absolute Lymphocytes (CBC) 1.2 K/uL (0.7-4.9); Absolute Monocytes 0.7 K/uL (0.1-1.3); Basophils % 0.2 % (0-1.3); Eosinophils % 0.9 % (0-4.4); Lymphocytes % 8.9 % (15.3-44.8); MCH 29.1 pg (27.0-35.0); MCV 86.3 fL (80-100); MPV 10.2 fL (7.6-11.3); Monocytes % 5.4 % (3.3-12.3); RBC Red Blood Cell Count 4.06 M/uL (4.33-5.43)
[2018-01-02 05:25] LABS: ALT/SGPT 36 IU/L (10-60); AST/SGOT 21 IU/L (10-42); Albumin 3.3 g/dL (3.2-5.5); Alkaline Phosphatase 84 IU/L (42-121); BUN Blood Urea Nitrogen 9 mg/dL (6-20); Bicarbonate 25 mEq/L (21-31); Bilirubin Total 0.7 mg/dL (0.3-1.2); Glucose Level 113 mg/dL (65-120); Potassium 4.3 mEq/L (3.6-5.0); Protein, Total 6.2 g/dL (6.0-8.3); Sodium Level 134 mEq/L (135-145)
[2018-01-02] MEDS: CLINDAMYCIN HCL 150 MG CAP PO SCH (05:44)
[2018-01-02] MEDS: VANCOMYCIN 2 GM in NA CHLORIDE 0.9% 500 ML IVPB SCH (05:44)
[2018-01-02] MEDS: ASPIRIN EC 81 MG TAB PO SCH (08:33)
[2018-01-02] MEDS: VALSARTAN 160 MG TAB PO SCH (08:33)
[2018-01-02] MEDS: METOPROLOL TAR 50 MG TAB PO SCH (08:33)
[2018-01-02] MEDS: ENOXAPARIN 40 MG/0.4 ML SQ SCH (08:33)
[2018-01-02 08:34] VITALS: BP 147/77
[2018-01-02 08:39] VITALS: TEMP 97.7
--- NOTE | 2018-01-02 09:41 | P.DS ---
Admission Date: 12/31/17 Discharge Date: 01/02/18 Disposition: ROUTINE DISCHARGE Discharge Condition: FAIR Reason for Admission: cellulitis - Problems (1) Cellulitis of right leg Onset Date: 12/31/17 Current Visit: Yes Status: Acute Brief History of Present Illness: Patient is 77 years of age admitted with fever possible cellulitis Hospital Course: . 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 His 2 sets of blood cultures were positive for this organism still be discharged on amoxicillin 500 mg 3 times a day for 2 weeks also need an outpatient echo to evaluate for the possibility of endocarditis patient's white count had declined to 13.1 On examination alert oriented responsive vital signs all stable chest clear abdomen soft extremities and no erythema edema Vital Signs/Physical Exam: Temp Pulse Resp BP Pulse Ox 97.7 F 65 20 147/77 H 97 01/02/18 08:00 01/02/18 08:33 01/02/18 08:00 01/02/18 08:33 01/02/18 08:00 Laboratory Data at Discharge: WBC 13.1 K/uL (4.3-10.9) H D 01/02/18 04:12 Hgb 11.8 g/dL (13.6-17.9) L 01/02/18 04:12 Hct 35.0 % (39.6-49.0) L 01/02/18 04:12 Plt Count 136 K/uL (152-406) L 01/02/18 04:12 PT 13.1 SECONDS (9.5-12.5) H 12/30/17 20:14 INR 1.11 12/30/17 20:14 APTT 25.3 SECONDS (24.3-36.9) 12/30/17 20:14 Sodium 134 mEq/L (135-145) L 01/02/18 04:12 Potassium 4.3 mEq/L (3.6-5.0) 01/02/18 04:12 BUN 9 mg/dL (6-20) 01/02/18 04:12 Creatinine 0.81 mg/dL (0.61-1.24) 01/02/18 04:12 Glucose 113 mg/dL (65-120) 01/02/18 04:12 Magnesium 1.9 mg/dL (1.8-2.5) 12/30/17 18:20 Total Bilirubin 0.7 mg/dL (0.3-1.2) 01/02/18 04:12 AST 21 IU/L (10-42) 01/02/18 04:12 ALT 36 IU/L (10-60) 01/02/18 04:12 Alkaline Phosphatase 84 IU/L (42-121) 01/02/18 04:12 B-Natriuretic Peptide 53 pg/ml (<=100) 12/30/17 18:20 Lipase 28 U/L (22-51) 12/30/17 18:20 Home Medications: Aspirin [Aspirin EC 81 MG] 81 mg PO DAILY 12/31/17 Atorvastatin Calcium [Lipitor] 40 mg PO BEDTIME 12/31/17 Famotidine/Ca Carb/Mag Hydrox [Pepcid Complete Tablet Chew] 1 each PO PRN PRN Metoprolol Tartrate [Lopressor] 50 mg PO BID 12/31/17 Valsartan [Diovan] 160 mg PO DAILY 12/31/17
[2018-01-02] MEDS ORDERED: VANCOMYCIN 2.25 GM in NA CHLORIDE 0.9% 500 ML IVPB SCH (23:00)
== END 2018-01-02 11:14 | disposition home or self-care (01) ==
LOC: ER 17:35 → INTOOBSV 20:17 → ERHOLD 20:17 → 4TH 21:41 → INTOOBSV 12-31 17:00 → OBSVTOIN 12-31 17:00
PROVIDERS: ADMIT Internal Medicine; ATTEND Internal Medicine
DX: A41.9 Sepsis, unspecified organism (principal); L03.115 Cellulitis of right lower limb; E87.1 Hypo-osmolality and hyponatremia; I10 Essential (primary) hypertension; I25.10 Atherosclerotic heart disease of native coronary artery without angina pectoris; E78.5 Hyperlipidemia, unspecified; Z79.82 Long term (current) use of aspirin; I73.9 Peripheral vascular disease, unspecified
CPT/HCPCS: 36415 ×2; 71045; 74177; 80048; 80053 ×3; 80076; 80202; 82550; 82553; 83605 ×4; 83690; 83735; 83880; 84145; 84484; 85025 ×3; 85610; 85730; 87040 ×2; 87077 ×2; 87186 ×2; 87205 ×4; 87804 ×2; 93005; 93971; 96361; 96365; 96375; 99285; C9113 ×2; G0378 ×2; J0360 ×3; J1650 ×3; J2405 ×2; J2543 ×3; J7030 ×2; Q9967; 81003; 81015; J3370

== ENCOUNTER 2020-12-22 18:06 | Emergency (ER) | payer OTHER ==
--- OUTSIDE RECORDS SUMMARY | 2020-12-22 18:09 | XMS REPORT | Continuity of Care Document ---
:1940 Author Organization [facility] t Address [address] [place] [address] Care Team Providers Name Role Phone Shar Holden MD Primary Care Physician Ruth Gonsalves MD Attending Clinician Starr ROSAS Attending Clinician Unavailable Roxana ROSAS Attending Clinician Unavailable Payers Payer Name Policy Type Policy Effective Expiration Source Number Date Date [facility] [id number] 2018 [place] CHOICE/CHOICE 00:00:00 [facility] [id number] 2018-Prese ntHMO/PPO Problems Condition Condition Condition Status Onset Resolution Last Treating Co mments Source Name Details Category Date Date Treatment Clinician Date History of History of Disease Active [facility] coronary coronary 04-11 [facility] artery artery 00:00: st stent stent 00 placement placement Coronary Coronary Disease Active Overview: [facility] artery artery 04-27 Formattin [facility] disease disease 00:00: g of this st involving involving 00 note [place] might be heart with heart with different angina angina from the pectoris pectoris original. Added automatic ally from request for surgery [id number] Claudicati Claudicati Disease Active [facility] on on 04-26 [facility] 00:[facility]: st 00 Abnormal Abnormal Disease Active [facility] on stress stress 04-26 [facility] test test 00:00: st 00 Hyperlipid Hyperlipid Disease Active [facility] emia emia 04-12 [facility] 00:00: st 00 Carotid Carotid Disease Active 2015-08 [facility] atheroscle atheroscle 1-18 Vt thodi rosis rosis 00:00: st Bilateral Bilateral 00 CAD in CAD in Disease Active 2015-08 [facility] [place] 09-02 [facility] artery artery 00:00: st 00 Dyslipidem Dyslipidem Disease Active 2015-08 [facility] ia ia 09-02 [facility] 00:00: st 00 Essential Essential Disease Active 2015-08 Emmie liu hypertensi hypertensi 18 Me thodi on on 00:00: st 00 Gastroesop Gastroesop Disease Active 2015-08 [facility] hageal hageal 09-02 [facility] reflux reflux 00:00: st disease disease 00 PAD PAD Disease Active 2015-08 [facility] (periphera (periphera 09-02 Me thodi l artery l artery 00:00: st disease) disease) 00 Stented Stented Disease Active 2015-08 [facility] coronary coronary 09-02 [facility] artery artery 00:00: st 00 Allergies, Adverse Reactions, Alerts This patient has no known allergies or adverse reactions. Family History Family Member Diagnosis Comments Start Date Stop Date Source Natural brother Heart disease Yairto micky Vo Natural father Lung cancer [facility] ethmichellest Natural sister Heart disease [facility] Social History Social Habit Start Date Stop Date Quantity Comments Source Tobacco use and 2018-10-04 2018-10-04 Never used [facility] ethodist exposure 00:00:00 00:00:00 Alcohol intake 2018-10-04 2018-10-04 Current drinker of Gary Vo 00:00:00 00:00:00 alcohol (finding) Alcohol Comment 2016-07-03 2016-07-03 occasional [facility] ethodist 00:00:00 00:00:00 Sex [birth year] [facility] paulineodist 00:00:00 00:00:00 Smoking Status Start Date Stop Date Source Former smoker 2018-10-04 00:00:00 2018-10-04 00:00:00 [facility] Medications Ordered Filled Start Stop Current Ordering Indication Dosage Frequency Signature Comments Components Source Medication Medication Date Date Medication? Clinician (SIG) Name Name losartan Yes Essential TAKE 1 Gary duong (COZAAR) 3-22 hypertensio TABLET Me thodi 100 MG 00:00: n DAILY st tablet 00 metoprolol Yes History of TAKE 1 [facility] tartrate 2-23 coronary TABLET Metho di (LOPRESSOR) 00:00: artery TWICE A s t 50 mg 00 stent DAY tablet placement amLODIPine 2021- Yes History of 5mg QD Take 1 [facility] (NORVASC) 5 10-08- coronary tablet (5 [facility] mg tablet 00:00: 23:59 artery mg total) st 00 :00 stent by mouth placement daily. metoprolol 2020- No History of TAKE 1 [facility] tartrate 10-08- coronary TABLET Meth michelle (LOPRESSOR) 00:00: 00:[address] 50 mg 00 :00 stent DAY tablet placement losartan 2020- No Essential TAKE 1 [place] (COZAAR) 09-10 hypertensio TABLET M ethodi 100 MG 00:00: 00:[address] tablet 00 :00 simvastatin 2019-08 Yes Hyperlipide TAKE 1 Bernard (ZOCOR) 40 1-18 [facility], TABLET [facility] mg tablet 00:00: unspecified DAILY st 00 hyperlipide [facility] type metoprolol 2019-08- No TAKE 1 [place] tartrate 1-17 - TABLET [facility] (LOPRESSOR) 00:00: 00:[address] 50 mg 00 :00 DAY tablet metoprolol 2019-08- No TAKE 1 [place] tartrate 1-13 11-17 TABLET [facility] (LOPRESSOR) 00:00: 00:[address] 50 mg 00 :00 DAY tablet metoprolol 2019-08- No TAKE 1 [place] tartrate 0-28 11-13 TABLET [facility] (LOPRESSOR) 00:00: 00:[address] 50 mg 00 :00 DAY tablet (CONTACT OUR OFFICE TO SCHEDULE APPOINTMEN T BEFORE NEXT REFILL) metoprolol 2019-08- No TAKE 1 [place] tartrate 0-28 10-28 TABLET [facility] (LOPRESSOR) 00:00: 00:[address] 50 mg 00 :00 DAY tablet (CONTACT OUR OFFICE TO SCHEDULE APPOINTMEN T BEFORE NEXT REFILL) hydroCHLORO Yes TAKE 1 [place] thiazide 8-03 TABLET [facility] (HYDRODIURI 00:00: DAILY st L) 25 MG 00 tablet losartan 2018-08- No Essential TAKE 1 [place] (COZAAR) 08-19 hypertensio TABLET M ethodi 100 MG 00:00: 00:[address] tablet 00 :00 metoprolol 2019- No TAKE 1 [place] tartrate - 10-28 TABLET [facility] (LOPRESSOR) 00:00: 00:[address] 50 mg 00 :00 DAY tablet (CONTACT OUR OFFICE TO SCHEDULE APPOINTMEN T BEFORE NEXT REFILL) aspirin Yes 81 mg once [place] (ADULT LOW 8-27 daily [facility] DOSE 10:10: st ASPIRIN) 81 17 MG enteric coated tablet ibuprofen-f Yes Take 1 [place] amotidine 827 tablet as Metho di (DUEXIS) 10:10: needed by st 800-26.6 mg 17 oral tablet route. hydroCHLORO 2019- No 25mg QD Take 1 Emmie ston thiazide 04-11- tablet (25 Meth michelle (HYDRODIURI 00:00: 00:00 mg total) st L) 25 MG 00 :00 by mouth tablet daily. simvastatin 2019- No Hyperlipide TAKE 1 [place] (ZOCOR) 40 04-1018 [facility], TABLET Method i MG tablet 00:00: 00:[address] 00 :00 hyperlipide [facility] type meloxicam Yes 7.5mg Take 7.5 Emmie ston (MOBIC) 7.5 1-17 mg by [facility] mg tablet 00:00: mouth. st 00 Immunizations Ordered Immunization Filled Immunization Date Status Commen ts Source Name Name PFIZER COVID-19 MRNA 2020-10-03 Completed [place] VACCINATION 00:00:00 [facility] PFIZER COVID-19 MRNA 2020-09-12 Completed [place] VACCINATION 00:00:00 [facility] Vital Signs Vital Name Observation Time Observation Value Comments Source Systolic blood 2020-10-08 11:02:00 154 mm[Hg] Yairto n [facility] pressure Diastolic blood 2020-10-08 11:02:00 67 mm[Hg] [place] [facility] pressure Heart rate 2020-10-08 11:02:00 51 /min Bernard Vo Body height 2020-10-08 11:02:00 188 cm Bernard Vo Body weight 2020-10-08 11:02:00 121.564 kg [facility] Vo BMI 2020-10-08 11:02:00 34.41 kg/m2 Bernard Vo Procedures Procedure Date / Time Performed Performing Clinician Sourc e ECG 12-LEAD 2020-10-08 11:07:28 Patel Gonsalves Meth odist Plan of Care Planned Activity Planned Date Details Comments Source Future Scheduled 2021-03-16 INFLUENZA VACCINE [place] [facility] Test 00:00:00 [code = INFLUENZA VACCINE] Future Scheduled 1991 SHINGLES VACCINES (#1) [facility] Test 00:00:00 [code = SHINGLES VACCINES (#1)] Future Scheduled 1959 Hepatitis C screening [facility] Test 00:00:00 (procedure) [code = 017003815] Future Scheduled 1947 65+ PNEUMOCOCCAL [facility] Test 00:00:00 VACCINE (1 of 2 - PPSV23) [code = 65+ PNEUMOCOCCAL VACCINE (1 of 2 - PPSV23)] Encounters Start End Encounter Admission Attending Care Care Encounter Source Date/Time Date/Time Type Type Clinicians Facility Department ID 2020-10-08 2020-10-08 [facility] [id number] [facility] 00:00:00 00:00:[facility] PATEL [address] 2020-10-03 2020-10-03 Outpatient [facility] [id number] [facility] 00:00:00 00:00:[address] 2020-09-12 2020-09-12 Outpatient [facility] [id number] [facility] 00:00:00 00:00:[address] 2019-10-10 2019-10-10 Outpatient [facility] [id number] [facility] 00:00:00 00:00:00 PAT[facility] [address] Results Test Description Test Time Test Comments Results Result Comments Source ECG 12 lead 2020-10-08 22:55:12 Test Item Value Reference Range Interpretation Comme nts Ventricular rate (test code = 253) 56 Atrial rate (test code = 255) 56 ID interval (test code = 266) 162 QRSD interval (test code = 260) 82 QT interval (test code = 264) 456 QTC interval (test code = 265) 440 P axis 1 (test code = 267) 8 QRS axis 1 (test code = 268) 42 T wave axis (test code = 270) 44 EKG impression (test code = 273) Sinus bradycardia-Otherwise normal ECG-In automated comparison with ECG of 11-APR-2019 09:08,-premature atrial complexes are no longer present-T wave inversion no longer evident in Inferior leads- Bernard Vo
[2020-12-22] MEDS ORDERED: LIDOCAINE 1% MPF 30 ML VIAL ONE (20:05)
[2020-12-22] MEDS ORDERED: LIDOCAINE 1% W/EPI 1:100,000 MDV 20 ML VIAL ONE (20:29)
--- NOTE | 2020-12-22 20:37 | ER ---
Nurse's Notes [facility] Name: Andrei Escobar Age: 80 yrs Sex: Male : 1940 Arrival Date: 12/22/2020 Time: 18:07 Bed 27 Private MD: Diagnosis: Laceration without foreign body of lower leg-right Presentation: 12/22 18:23 Chief complaint: Patient states: PUNCTURE WOUND FROM TRUCK DOOR AT 0900, STILL bp BLEEDING. Coronavirus screen: At this time, the client does not indicate any symptoms associated with coronavirus-19. Ebola Screen: No symptoms or risks identified at this time. Complicating Factors: The type of wound is a puncture. Initial Sepsis Screen: Does the patient meet any 2 criteria? No. Patient's initial sepsis screen is negative. Does the patient have a suspected source of infection? No. Patient's initial sepsis screen is negative. Risk Assessment: Do you want to hurt yourself or someone else? Patient reports no desire to harm self or others. Onset of symptoms was December 22, 2020 at 09:00. 18:23 Method Of Arrival: Ambulatory bp 18:23 Acuity: CARLYN 3 bp Triage Assessment: 18:25 General: Appears in no apparent distress. comfortable, Behavior is calm, cooperative, bp appropriate for age. Pain: Denies pain. EENT: No deficits noted. Neuro: No deficits noted. Cardiovascular: No deficits noted. Respiratory: No deficits noted. GI: No signs and/or symptoms were reported involving the gastrointestinal system. : No deficits noted. Derm: No deficits noted. Musculoskeletal: No deficits noted. Injury Description: Laceration sustained to right bowman. Historical: - Allergies: 18:25 No Known Allergies; bp - Home Meds: 18:25 aspirin 81 mg Oral chew [Active]; Hydrochlorothiazide Oral [Active]; losartan Oral bp [Active]; Metoprolol Tartrate Oral [Active]; Simvastatin Oral [Active]; - PMHx: 18:25 Hyperlipidemia; Hypertension; bp - Immunization history:: Adult Immunizations. - Social history:: Smoking status: Patient denies any tobacco usage or history of. Screenin:45 Abuse screen: Denies threats or abuse. Nutritional screening: No deficits noted. bb Tuberculosis screening: No symptoms or risk factors identified. Fall Risk None identified. Assessment: 18:27 General: SEE TRIAGE NOTE. Injury Description: Puncture sustained to right bowman. bp 19:45 General: Appears in no apparent distress. Behavior is calm, cooperative. Pain: bb Complains of pain in right bowman. Neuro: Level of Consciousness is awake, alert, obeys commands, Oriented to person, place, time, situation. Cardiovascular: No deficits noted. Respiratory: Respiratory effort is even, unlabored, Respiratory pattern is regular. GI: No signs and/or symptoms were reported involving the gastrointestinal system. Derm: Skin is fragile, is thin, Skin is pink, warm \T\ dry. Wound noted right leg. Musculoskeletal: Circulation, motion, and sensation intact. 20:30 Reassessment: Patient is alert, oriented x 3, equal unlabored respirations, skin bb warm/dry/pink. awaiting provider for wound closure. Injury Description: Puncture sustained to right bowman. 20:30 Injury Description: Laceration is jagged, 0.5 to 2.5 cm long. bb 20:50 Reassessment: Patient is alert, oriented x 3, equal unlabored respirations, skin bb warm/dry/pink. pt verbalized understanding of and agrees to plan of care discharge instructions given pt ambulated with steady gait to exit accompanied by family. Vital Signs: 18:23 BP 156 / 75; Pulse 72; Resp 17; Temp 97.1; Pulse Ox 98% ; Weight 115.21 kg; Height 6 bp ft. 2 in. (187.96 cm); 20:30 BP 142 / 62; Pulse 64; Resp 16 S; Pulse Ox 99% ; bb 18:23 Body Mass Index 32.61 (115.21 kg, 187.96 cm) bp ED Course: 18:07 Patient arrived in ED. bg2 18:24 Triage completed. bp 18:25 Arm band placed on. bp 19:28 Yohan Phillips PA is PHCP. cp 19:28 Yohan Johnson MD is Attending Physician. cp 19:45 Patient has correct armband on for positive identification. Bed in low position. Call bb light in reach. 20:05 Mari Mckeon, JESSICA is Primary Nurse. bb 20:35 Assist provider with laceration repair on right bowman using sutures. Set up tray. bb Performed by Yohan KNOX Patient tolerated well. Patient did not have IV access during this emergency room visit. 20:50 Dressings: neosporin, 2x2, tegaderm and antonio wrap to left bowman. bb Administered Medications: 20:30 Drug: Lidocaine-Epinephrine -1%: (1:100,000) 10 ml {Note: administered by Yohan butler to affected area.} Volume: 20 ml; Route: Infiltration; 20:49 Follow up: Response: No adverse reaction bb Outcome: 20:36 Discharge ordered by MD. cp 20:50 Discharged to home ambulatory, with family. bb 20:50 Condition: stable 20:50 Discharge instructions given to patient, Instructed on discharge instructions, follow up and referral plans. wound care, Demonstrated understanding of instructions, follow-up care, wound care. 20:52 Patient left the ED. bb Signatures: Mari Mckeon, RN RN bb Marissa Alonzo 2 Yohan Phillips PA PA cp Peltier, Brian, RN RN bp
--- NOTE | 2020-12-22 20:37 | EDPHYS ---
Physician Documentation [facility] Name: Andrei Escobar Age: 80 yrs Sex: Male : 1940 Arrival Date: 12/22/2020 Time: 18:07 Bed 27 Private MD: ED Physician Yohan Johnson HPI: 12/22 19:35 This 80 yrs old Male presents to ER via Ambulatory with complaints of cp Laceration To Leg. 19:35 The patient has a laceration related to: sharp edge of car door and there are no cp complicating factors. The laceration(s) is(are) located on the right bowman. Onset: The symptoms/episode began/occurred this morning. Associated signs and symptoms: Pertinent positives: continued bleeding, Pertinent negatives: suspected foreign body. Historical: - Allergies: 18:25 No Known Allergies; bp - Home Meds: 18:25 aspirin 81 mg Oral chew [Active]; Hydrochlorothiazide Oral [Active]; losartan Oral bp [Active]; Metoprolol Tartrate Oral [Active]; Simvastatin Oral [Active]; - PMHx: 18:25 Hyperlipidemia; Hypertension; bp - Immunization history:: Adult Immunizations. - Social history:: Smoking status: Patient denies any tobacco usage or history of. ROS: 19:45 Constitutional: Negative for fever. cp 19:45 Eyes: Negative for injury, pain, redness, and discharge. cp 19:45 Cardiovascular: Negative for chest pain. 19:45 Respiratory: Negative for cough, shortness of breath, wheezing. 19:45 Abdomen/GI: Negative for abdominal pain. 19:45 Skin: Positive for laceration(s), of the right bowman, Negative for cellulitis. 19:45 All other systems are negative. Exam: 19:50 Constitutional: The patient appears in no acute distress, alert, awake, well developed, cp well nourished, obese. 19:50 Head/Face: Normocephalic, atraumatic. cp 19:50 Chest/axilla: Inspection: normal. 19:50 Cardiovascular: Rate: normal. 19:50 Respiratory: the patient does not display signs of respiratory distress, Respirations: normal, no use of accessory muscles. 19:50 Skin: cellulitis, is not appreciated, injury, laceration(s), the wound is approximately 3 cm(s), of the right bowman, that can be described as with moderate bleeding. Vital Signs: 18:23 BP 156 / 75; Pulse 72; Resp 17; Temp 97.1; Pulse Ox 98% ; Weight 115.21 kg; Height 6 bp ft. 2 in. (187.96 cm); 20:30 BP 142 / 62; Pulse 64; Resp 16 S; Pulse Ox 99% ; bb 18:23 Body Mass Index 32.61 (115.21 kg, 187.96 cm) bp Laceration: 20:34 Wound Repair of 3cm ( 1.2in ) subcutaneous laceration to right bowman. Skin/tissue flap cp noted.. Distal neuro/vascular/tendon intact. Anesthesia: Wound infiltrated with 5 mls of 1% lidocaine w/ Epi. Wound prep: Moderate cleansing by me, Wound irrigation by me. Skin closed with 5 4-0 Prolene using simple sutures and sterile technique. Dressed with Bacitracin, 4x4's. Patient tolerated well. MDM: 19:30 Patient medically screened. cp 20:35 Data reviewed: vital signs, nurses notes, and as a result, I will discharge patient. 12/22 19:32 Order name: Wound Care: please clean and irrigate wound; Complete Time: 21:22 cp 12/22 20:35 Order name: Wound dressing; Complete Time: 21:22 cp Administered Medications: 20:30 Drug: Lidocaine-Epinephrine -1%: (1:100,000) 10 ml {Note: administered by Yohan butler to affected area.} Volume: 20 ml; Route: Infiltration; 20:49 Follow up: Response: No adverse reaction bb Disposition: 12/23 10:00 Co-signature as Attending Physician, Yohan Johsnon MD I agree with the assessment and [facility] plan of care. Disposition: 12/22/20 20:36 Discharged to Home. Impression: Laceration without foreign body of lower leg - right. - Condition is Stable. - Discharge Instructions: Laceration Care, Adult. - Medication Reconciliation Form, Thank You Letter, Antibiotic Education, Prescription Opioid Use form. - Follow up: Private Physician; When: 10 - 14 days; Reason: Staple/Suture removal. - Problem is new. - Symptoms have improved. Signatures: Yohan Johnson MD MD cha Ballard, Brenda, RN RN Yohan Forte PA PA cp Peltier, Brian, RN RN bp Corrections: (The following items were deleted from the chart) 12/22 20:52 20:36 12/22/2020 20:36 Discharged to Home. Impression: Laceration without foreign body bb of lower leg - right. Condition is Stable. Forms are Medication Reconciliation Form, Thank You Letter, Antibiotic Education, Prescription Opioid Use. Follow up: Private Physician; When: 10 - 14 days; Reason: Staple/Suture removal. Problem is new. Symptoms have improved. cp
[2020-12-22 20:56] VITALS: BP 156/75; TEMP 97.1; O2SAT 98
== END 2020-12-22 20:52 | disposition home or self-care (01) ==
LOC: ER 18:06
PROC: 0JQN0ZZ Repair Right Lower Leg Subcutaneous Tissue and Fascia, Open Approach (ICD-10-PCS; principal; 2020-12-22)
DX: S81.811A Laceration without foreign body, right lower leg, initial encounter (principal); W26.8XXA Contact with other sharp object(s), not elsewhere classified, initial encounter; I10 Essential (primary) hypertension; E78.5 Hyperlipidemia, unspecified; Z79.82 Long term (current) use of aspirin
CPT/HCPCS: 99283

== ENCOUNTER 2021-01-12 14:15 | Inpatient (IN) | payer OTHER ==
--- OUTSIDE RECORDS SUMMARY | 2021-01-12 14:18 | XMS REPORT | Continuity of Care Document ---
:1940 Author Organization [facility] t Address [address] [place] [address] Care Team Providers Name Role Phone Shar Holden MD Primary Care Physician Ruth Gonsalves MD Attending Clinician Starr ROSAS Attending Clinician Unavailable Roxana ROSAS Attending Clinician Unavailable Payers Payer Name Policy Type Policy Effective Expiration Source Number Date Date [facility] [id number] 2018 [place] CHOICE/CHOICE 00:00:00 [facility] [id number] 2018-Prese ntHMO/PPO Problems Condition Condition Condition Status Onset Resolution Last Treating Co mments Source Name Details Category Date Date Treatment Clinician Date History of History of Disease Active [place] coronary coronary 04-11 [facility] artery artery 00:00: st stent stent 00 placement placement Coronary Coronary Disease Active Overview: Gary duong artery artery 04-27 [place] [facility] disease disease 00:00: g of this st involving involving 00 note akhiok akhiok might be heart with heart with different angina angina from the pectoris pectoris original. Added automatic ally from request for surgery [id number] Claudicati Claudicati Disease Active [facility] [place] on on 04-26 [facility] 00:00: st 00 Abnormal Abnormal Disease Active [place] stress stress 04-26 [facility] test test 00:00: st 00 Hyperlipid Hyperlipid Disease Active H n[place] emia emia 04-12 [facility] 00:00: st 00 Carotid Carotid Disease Active 2015-08 [place] atheroscle atheroscle 18 Me thodi rosis rosis 00:00: st Bilateral Bilateral 00 CAD in CAD in Disease Active 2015-08 [place] akhiok akhiok 09-02 [facility] artery artery 00:00: st 00 Dyslipidem Dyslipidem Disease Active 2015-08 [place] ia ia 09-02 [facility] 00:00: st 00 Essential Essential Disease Active 2015-08 Emmie ston hypertensi hypertensi 18 Me thodi on on 00:00: st 00 Gastroesop Gastroesop Disease Active 2015-08 [place] hageal hageal 09-02 [facility] reflux reflux 00:00: st disease disease 00 PAD PAD Disease Active 2015-08 [place] (periphera (periphera 09-02 Me thodi l artery l artery 00:00: st disease) disease) 00 Stented Stented Disease Active 2015-08 [place] coronary coronary 09-02 [facility] i artery artery 00:00: st 00 Allergies, Adverse Reactions, Alerts This patient has no known allergies or adverse reactions. Family History Family Member Diagnosis Comments Start Date Stop Date Source Natural brother Heart disease Don Vo Natural father Lung cancer [facility] ethpietro Natural sister Heart disease [place] [facility] Social History Social Habit Start Date Stop Date Quantity Comments Source Tobacco use and 2018-10-04 2018-10-04 Never used [facility] ethodist exposure 00:00:00 00:00:00 Alcohol intake 2018-10-04 2018-10-04 Current drinker of Gary Vo 00:00:00 00:00:00 alcohol (finding) Alcohol Comment 2016-07-03 2016-07-03 occasional [place] Alexandra ethodist 00:00:00 00:00:00 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 Clinician (SIG) Name Name losartan Yes Essential TAKE 1 Gary duong (COZAAR) 5-24 hypertensio TABLET Me thodi 100 MG 00:00: n DAILY st tablet 00 losartan 2020- No Essential TAKE 1 H anaalexa (COZAAR) 3-22 05-24 hypertensio TABLET M ethodi 100 MG 00:00: 00:[address] tablet 00 :00 metoprolol Yes History of TAKE 1 Bernard tartrate 2-23 coronary TABLET Metho di (LOPRESSOR) 00:00: artery TWICE A s t 50 mg 00 stent DAY tablet placement amLODIPine 2021- No History of 5mg QD Take 1 Bernard (NORVASC) 5 -08 10- coronary tablet (5 [facility] mg tablet 00:00: 23:59 artery mg total) st 00 :00 stent by mouth placement daily. metoprolol 2020- No History of TAKE 1 Bernard tartrate -08 10- coronary TABLET Meth michelle (LOPRESSOR) 00:00: 00:00 [...] L) 25 MG 00 tablet losartan 2018-08- Essential TAKE 1 [place] (COZAAR) 08-19 hypertensio TABLET M ethodi 100 MG 00:00: 00:[address] tablet 00 :00 metoprolol 2019- No TAKE 1 [place] tartrate 04-18 TABLET [facility] (LOPRESSOR) 00:00: 00:[address] 50 mg 00 :00 DAY tablet (CONTACT OUR OFFICE TO SCHEDULE APPOINTMEN T BEFORE NEXT REFILL) aspirin Yes 81 mg once [place] (ADULT LOW 8-27 daily [facility] DOSE 10:10: st ASPIRIN) 81 17 MG enteric coated tablet ibuprofen-f Yes Take 1 [place] amotidine 04-11 tablet as Metho di (DUEXIS) 10:10: needed by st 800-26.6 mg 17 oral tablet route. hydroCHLORO 2019- No 25mg QD Take 1 Emmie ston thiazide 04-11- tablet (25 Meth michelle (HYDRODIURI 00:00: 00:00 mg total) st L) 25 MG 00 :00 by mouth tablet daily. simvastatin 2019- Hyperlipide TAKE 1 [place] (ZOCOR) 40 04-10 11-18 [facility], TABLET Method i MG tablet 00:00: 00:[address] 00 :00 hyperlipide [facility] type meloxicam Yes 7.5mg Take 7.5 Emmie ston (MOBIC) 7.5 1-17 mg by [facility] mg tablet 00:00: mouth. st 00 Immunizations Ordered Immunization Filled Immunization Date Status Commen ts Source Name Name PFIZER COVID-19 MRNA 2020-10-03 Completed [place] VACCINATION 00:00:00 [facility] PFIZER COVID-19 MRNA 2020-09-12 Completed [place] VACCINATION 00:00:00 [facility] Vital Signs Vital Name Observation Time Observation Value Comments Source Systolic blood 2020-10-08 11:02:00 154 mm[Hg] Don n [facility] pressure Diastolic blood 2020-10-08 11:02:00 67 mm[Hg] [place] [facility] pressure Heart rate 2020-10-08 11:02:00 51 /min Bernard Vo Body height 2020-10-08 11:02:00 188 cm Bernard Vo Body weight 2020-10-08 11:02:00 121.564 kg Bernard Vo BMI 2020-10-08 11:02:00 34.41 kg/m2 Bernard Vo Procedures Procedure Date / Time Performed Performing Clinician [facility] e ECG 12-LEAD 2020-10-08 11:07:28 Patel Gonsalves Meth odist Plan of Care Planned Activity Planned Date Details Comments Source Future Scheduled 2021-03-16 INFLUENZA VACCINE [place] [facility] Test 00:00:00 [code = INFLUENZA VACCINE] Future Scheduled 1991 SHINGLES VACCINES (#1) [place] [facility] Test 00:00:00 [code = SHINGLES VACCINES (#1)] Future Scheduled 1959 Hepatitis C screening [place] [facility] Test 00:00:00 (procedure) [code = 280366623] Future Scheduled 1947 65+ PNEUMOCOCCAL [facility] Test 00:00:00 VACCINE (1 of 2 - PPSV23) [code = 65+ PNEUMOCOCCAL VACCINE (1 of 2 - PPSV23)] Encounters Start End Encounter Admission Attending Care Care Encounter Source Date/Time Date/Time Type Type Clinicians Facility Department ID 2020-10-08 2020-10-08 Outpatient [facility]ONS[facility]FORMERLY [facility] [id number] [place] 00:00:00 00:00:00 PTAEL [address] 2020-10-03 2020-10-03 Outpatient [facility] [id number] [place] 00:00:00 00:00:[address] 2020-09-12 2020-09-12 Outpatient [facility] [id number] [place] 00:00:00 00:00:[address] 2019-10-10 2019-10-10 Outpatient BRINAFORMERLY [facility] [id number] [place] 00:00:00 00:00:00 PATEL [address] Results Test Description Test Time Test Comments Results Result Comments Source ECG 12 lead 2020-10-08 22:55:12 Test Item Value Reference Range Interpretation Comme nts Ventricular rate (test code = 253) 56 Atrial rate (test code = 255) 56 TN interval (test code = 266) 162 QRSD [...]
[2021-01-12 15:28] LABS: Absolute Lymphocytes (CBC) 0.9 K/uL (0.7-4.9); Basophils % 0.4 % (0-1.3); Hematocrit 41.9 % (39.6-49.0); Lymphocytes % 4.5 % (15.3-44.8); MPV 10.3 fL (7.6-11.3); RBC Red Blood Cell Count 4.63 M/uL (4.33-5.43)
[2021-01-12 15:50] LABS: ALT/SGPT 22 U/L (12-78); AST/SGOT 12 U/L (15-37); Albumin 3.6 g/dL (3.4-5.0); Alkaline Phosphatase 77 U/L (45-117); BUN Blood Urea Nitrogen 15 mg/dL (7-18); Bicarbonate 24 mmol/L (21-32); Bilirubin Direct 0.3 mg/dL (0-0.2); Bilirubin Total 1.1 mg/dL (0.2-1.0); Glucose Level 129 mg/dL (74-106); Magnesium 2.1 mg/dL (1.8-2.4); NT PRO-BNP 1393 pg/mL (<450); Potassium 3.6 mmol/L (3.5-5.1); Protein, Total 7.7 g/dL (6.4-8.2); Sodium Level 132 mmol/L (136-145); Troponin (Emerg Dept Use Only) < 0.02 ng/mL (0.0-0.045)
[2021-01-12] MEDS ORDERED: VANCOMYCIN/NS 1 gm 1 GM/250 ML BAG IVPB ONE ×2 (16:00→21:21)
[2021-01-12] MEDS ORDERED: CEFEPIME/SWI 1gm 10 ML ONE ×2 (16:02→16:04)
[2021-01-12] MEDS ORDERED: NA CHLORIDE 0.9% 50 ML ONE (16:04)
[2021-01-12 16:06] LABS: Protime INR 1.21
--- NOTE | 2021-01-12 16:38 | RAD REPORT ---
EXAM DESCRIPTION: CT - Head Brain Wo Cont - 01/12/2021 4:05 pm CLINICAL HISTORY: Generalized weakness, right lower extremity weakness, hypertension COMPARISON: MRI IAC W/Wo Cont dated 12/14/2018 TECHNIQUE: Axial 5 mm thick images of the head were obtained without IV contrast. All CT scans are performed using dose optimization technique as appropriate and may include automated exposure control or mA/KV adjustment according to patient size. FINDINGS: No intracranial hemorrhage, mass, edema or shift of mid-line structures. No acute cortical based infarction changes seen. No cortical edema or sulcal effacement. Atrophy changes are minimal f or age. There is very extensive chronic ischemic change throughout the cerebral white matter extendin g into the basal ganglia and thalamus tissues to a lesser degree. Brainstem chronic ischemic change i s also evident. Focal diminished attenuation in the genu of the internal capsule noted on the left si de. Severity of chronic ischemic change is probably not substantially different from the MRI study. Mastoid air cells are clear. Mucosal thickening present throughout the ethmoid air cells. Arterial tree calcifications are present. No acute bony findings. IMPRESSION: No intracranial hemorrhage is present and no acute cortical based infarction identified. Patient has a very extensive chronic ischemic pattern in the cerebral hemispheres with less extensive chronic ischemic change in the basal ganglia, thalamus brainstem tissues. Chronic ischemic changes can mask nonhemorrhagic acute infarction. MR brain followup can be obtained if there is ongoing concern for acute ischemia.
--- NOTE | 2021-01-12 16:44 | RAD REPORT ---
EXAM DESCRIPTION: RAD - Chest Single View - 01/12/2021 3:43 pm CLINICAL HISTORY: generalized weakness, lower extremity swelling COMPARISON: Portable December 2017 TECHNIQUE: AP portable chest image was obtained 01/12/2021 3:43 pm . FINDINGS: Lung volumes are diminished compared to the prior study. No peripheral mass or consolidati on identified. No acute failure or volume overload. In the left midlung field on the 2018 study there was a focal rounded density. That density has decreased in size and is more radiolucent. This remain s superimposed on the posterior left seventh rib and is probably the sequela from a prior fracture. H eart and vasculature are normal. No measurable pleural effusion and no pneumothorax. No acute bony ab normality seen. No acute aortic findings suspected. IMPRESSION: No acute cardiopulmonary process. No significant change from comparison study.
[2021-01-12] MEDS ORDERED: TETANUS & DIPHTHERIA TOX,ADULT 0.5 ML VIAL ONE (17:12)
--- NOTE | 2021-01-12 17:19 | ER ---
Nurse's Notes [facility] Name: Andrei Escobar Age: 80 yrs Sex: Male : 1940 Arrival Date: 01/12/2021 Time: 14:21 Bed 14 Private MD: Diagnosis: Cellulitis of right lower limb Presentation: 01/12 14:30 Chief complaint: Patient states: RLE redness, pain, swelling for 3 days getting slowly ll1 worse. No fever. Feels weak, lethargic, off balanced started today. Had R groin pain earlier for a couple hours that resolved on its own. Denies dysuria. Coronavirus screen: Client denies travel out of the [place] in the last 14 days. At this time, the client does not indicate any symptoms associated with coronavirus-19. Ebola Screen: Patient denies travel to an Ebola-affected area in the 21 days before illness onset. Initial Sepsis Screen: Does the patient meet any 2 criteria? No. Patient's initial sepsis screen is negative. Does the patient have a suspected source of infection? Yes: Skin breakdown/wound. Risk Assessment: Do you want to hurt yourself or someone else? Patient reports no desire to harm self or others. Onset of symptoms was January 10, 2021. 14:30 Method Of Arrival: Ambulatory ll1 14:30 Acuity: CARLYN 3 ll1 Historical: - Allergies: 14:29 No Known Allergies; ll1 - PMHx: 14:29 Hyperlipidemia; Hypertension; ll1 - PSHx: 14:29 Heart stents; knee replacements; prostatectomy, Prostate CA; ll1 - Immunization history:: Last tetanus immunization: < 10 years ago Flu vaccine is up to date. - Social history:: Smoking status: Patient denies any tobacco usage or history of. Screenin:40 Abuse screen: Denies threats or abuse. Denies injuries from another. Nutritional ca1 screening: No deficits noted. Tuberculosis screening: No symptoms or risk factors identified. Fall Risk Fall in past 12 months (25 points). IV access (20 points). Gait- Weak (10 pts.). Total Walters Fall Scale indicates High Risk Score (45 or more points). Fall prevention measures have been instituted. Side Rails Up X 2 Frequent Obs/Assessments Occuring Family Present and informed to notify staff if the need to leave the bedside As available patient and family educated on Fall Prevention Program and Strategies. Assessment: 14:40 General: Appears in no apparent distress. comfortable, Behavior is calm, cooperative, ca1 appropriate for age. Pain: Denies pain. Neuro: Level of Consciousness is awake, alert, obeys commands, Oriented to person, place, time, situation. Neuro: Reports states, "he was lethargic this morning, and unsteady on his gait". Cardiovascular: Heart tones S1 S2 present Capillary refill < 3 seconds Patient's skin is warm and dry. Respiratory: Airway is patent Respiratory effort is even, unlabored, Respiratory pattern is regular, symmetrical, Breath sounds are clear bilaterally. GI: Abdomen is round non-distended, Bowel sounds present X 4 quads. Abd is soft and non tender X 4 quads. : No signs and/or symptoms were reported regarding the genitourinary system. EENT: No signs and/or symptoms were reported regarding the EENT system. Derm: Skin is healthy with good turgor, Skin is pink, warm \\T\\ dry. R lower leg swollen, red and hot to touch. Musculoskeletal: Circulation, motion, and sensation intact. Capillary refill < 3 seconds, Swelling present in lateral aspect of right calf, right ankle, right calf, right Achilles, medial aspect of right calf, right bowman and anterior aspect of right ankle. 15:17 Reassessment: US at bedside. ca1 15:40 Reassessment: Patient appears in no apparent distress at this time. Patient and/or ca1 family updated on plan of care and expected duration. Pain level reassessed. Patient is alert, oriented x 3, equal unlabored respirations, skin warm/dry/pink. 16:49 Reassessment: Patient appears in no apparent distress at this time. Patient and/or ca1 family updated on plan of care and expected duration. Pain level reassessed. Patient is alert, oriented x 3, equal unlabored respirations, skin warm/dry/pink. 17:55 Reassessment: Patient appears in no apparent distress at this time. Patient and/or ca1 family updated on plan of care and expected duration. Pain level reassessed. Patient is alert, oriented x 3, equal unlabored respirations, skin warm/dry/pink. 18:55 Reassessment: Patient appears in no apparent distress at this time. Patient and/or ca1 family updated on plan of care and expected duration. Pain level reassessed. Patient is alert, oriented x 3, equal unlabored respirations, skin warm/dry/pink. 19:55 Reassessment: Patient appears in no apparent distress at this time. Patient and/or ca1 family updated on plan of care and expected duration. Pain level reassessed. Patient is alert, oriented x 3, equal unlabored respirations, skin warm/dry/pink. 20:44 Reassessment: Patient appears in no apparent distress at this time. Patient is alert, ca1 oriented x 3, equal unlabored respirations, skin warm/dry/pink. 20:46 Reassessment: called 2nd floor for report, nurse will call back. ca1 Vital Signs: 14:30 BP 188 / 50; Pulse 77; Resp 17; Temp 100.1; Pulse Ox 98% ; Weight 112.94 kg; Height 6 ll1 ft. 2 in. (187.96 cm); Pain 2/10; 15:40 BP 126 / 71; Pulse 87; Resp 16 S; Pulse Ox 97% on R/A; ca1 16:50 BP 136 / 77; Pulse 71; Resp 16 S; Pulse Ox 98% on R/A; ca1 17:55 BP 111 / 57; Pulse 73; Resp 18 S; Pulse Ox 98% on R/A; ca1 18:55 BP 141 / 63; Pulse 77; Resp 16 S; Pulse Ox 100% on R/A; ca1 19:50 BP 100 / 83; Pulse 74; Resp 20 S; Pulse Ox 97% on R/A; ca1 20:45 BP 102 / 50; Pulse 69; Resp 20 S; Temp 98.9(TE); Pulse Ox 95% on R/A; ca1 14:30 Body Mass Index 31.97 (112.94 kg, 187.96 cm) ll1 ED Course: 14:21 Patient arrived in ED. bp1 14:28 Arm band placed on. ll1 14:32 Triage completed. ll1 14:36 Adriana Nina, JESSICA is Primary Nurse. ca1 14:40 Patient has correct armband on for positive identification. Bed in low position. Call ca1 light in reach. Side rails up X 1. awake overnight monitor on. Pulse ox on. NIBP on. 14:44 Soren Olea NP is PHCP. pm1 14:44 Yohan Johnson MD is Attending Physician. pm1 14:53 Inserted saline lock: 24 gauge in right forearm, using aseptic technique. Blood ca1 collected. 15:09 Initial lab(s) drawn, by me, held in ED. First set of blood cultures drawn by me. ca1 15:31 Second set of blood cultures drawn by me. ca1 15:43 XRAY Chest (1 view) In Process Unspecified. EDMS 15:56 COVID swab sent to lab. mb4 16:05 CT Head Brain wo Cont In Process Unspecified. EDMS 17:17 Fly Rivera MD is Hospitalizing Provider. pm1 17:30 US Extremity Venous Unilateral Ltd In Process Unspecified. EDMS 20:43 No provider procedures requiring assistance completed. Patient admitted, IV remains in ca1 place. Administered Medications: 15:49 Drug: Cefepime 2 grams Route: IVPB; Rate: 200 ml/hr; Infused Over: 30 mins; Site: right ca1 antecubital; 16:47 Follow up: Response: No adverse reaction; IV Status: Completed infusion ca1 16:47 Drug: vancoMYCIN 1 grams Route: IVPB; Infused Over: 2 hrs; Site: right antecubital; ca1 18:20 Follow up: Response: No adverse reaction; IV Status: Completed infusion ca1 16:55 Drug: Tetanus-Diphtheria Toxoid Adult 0.5 ml {Pay Per Click Strategist: [employer]. Exp: ca1 02/04/2022. Lot #: [id number]. } Route: IM; Site: right deltoid; 18:20 Follow up: Response: No adverse reaction ca1 Outcome: 17:18 Decision to Hospitalize by Provider. pm1 20:51 Admitted to Med/surg accompanied by tech, via stretcher, room 215, with chart, Report ca1 called to JESSICA Be 20:51 Condition: stable 20:51 Instructed on the need for admit. 21:14 Patient left the ED. ca1 Signatures: Dispatcher [employer] EDMS Soren Olea, CJ REGIONAL EXTENSION SERVICE SPECIALIST pm1 Elvia Dasilva4 Adriana Nina RN RN ca1 Pardeep Gleason RN RN ll1 Marissa Monteiro Corrections: (The following items were deleted from the chart) 15:17 14:53 Inserted saline lock: 24 gauge in right forearm, using aseptic technique. Blood ca1 collected. ca1 15:17 14:53 Initial lab(s) drawn, by me, held in ED. First set of blood cultures drawn by me, ca1 ca1 20:52 20:45 BP 102 / 50; Pulse 69bpm; Resp 20bpm; Spontaneous; Pulse Ox 95% RA; ca1 ca1
--- NOTE | 2021-01-12 17:19 | EDPHYS ---
Physician Documentation [facility] Name: Andrei Escobar Age: 80 yrs Sex: Male : 1940 Arrival Date: 01/12/2021 Time: 14:21 Bed 14 Private MD: ED Physician Yohan Johnson HPI: 01/12 15:15 This 80 yrs old Male presents to ER via Ambulatory with complaints of Leg pm1 Swelling, Lethargic. 15:15 The patient presents with cellulitis of the right bowman and right calf. Description: pm1 erythematous, hot, swollen. Onset: The symptoms/episode began/occurred 3 day(s) ago. Possible cause(s): unknown. Associated signs and symptoms: Pertinent positives: erythema, Generalized weakness and low energy, Pertinent negatives: discharge, drainage, headache. Modifying factors: the symptoms are alleviated by nothing, the symptoms are aggravated by nothing. Severity of symptoms: in the emergency department the symptoms are actually worse. The patient has experienced similar episodes in the past, a few times, today's symptoms are similar, to previous cellulitis to lower extermities. The patient has not recently seen a physician, the patient's primary care provider is Dr. Holden. Historical: - Allergies: 14:29 No Known Allergies; ll1 - PMHx: 14:29 Hyperlipidemia; Hypertension; ll1 - PSHx: 14:29 Heart stents; knee replacements; prostatectomy, Prostate CA; ll1 - Immunization history:: Last tetanus immunization: < 10 years ago Flu vaccine is up to date. - Social history:: Smoking status: Patient denies any tobacco usage or history of. ROS: 15:15 Eyes: Negative for injury, pain, redness, and discharge, ENT: Negative for injury, pm1 pain, and discharge, Neck: Negative for injury, pain, and swelling, Cardiovascular: Negative for chest pain, palpitations, and edema, Respiratory: Negative for shortness of breath, cough, wheezing, and pleuritic chest pain, Abdomen/GI: Negative for abdominal pain, nausea, vomiting, diarrhea, and constipation, Back: Negative for injury and pain. 15:15 : Negative for injury, bleeding, discharge, and swelling. 15:15 Constitutional: Positive for fatigue, Negative for body aches, chills, fever. 15:15 MS/extremity: Positive for pain, swelling, of the right bowamn and right calf, Positive for abrasion to right bowman. 15:15 Skin: Positive for cellulitis, of the right calf and right bowman. 15:15 Neuro: Positive for generalized weakness, Negative for altered mental status, dizziness, headache, numbness, tingling. Exam: 15:15 Constitutional: This is a well developed, well nourished patient who is awake, alert, pm1 and in no acute distress. Head/Face: Normocephalic, atraumatic. 15:15 Neck: Trachea midline, no thyromegaly or masses palpated, and no cervical lymphadenopathy. Supple, full range of motion without nuchal rigidity, or vertebral point tenderness. No Meningismus. 15:15 Eyes: Exam is negative for acute changes, Extraocular movements: no acute changes, Conjunctiva: normal, Sclera: no acute changes, icterus, is not appreciated. 15:15 ENT: Mouth: Lips: normal, Oral mucosa: normal, pink and intact, moist. 15:15 Cardiovascular: Rate: normal, Rhythm: regular, Pulses: no pulse deficits are appreciated, Heart sounds: normal, Edema: is not appreciated. 15:15 Respiratory: Exam negative for shortness of breath, the patient does not display signs of respiratory distress, Breath sounds: are clear throughout. 15:15 Abdomen/GI: Inspection: abdomen appears normal, Palpation: abdomen is soft and non-tender, in all quadrants. 15:15 Musculoskeletal/extremity: ROM: intact in all extremities, Circulation is intact in all extremities. Pulses: noted to be 2+ in the right dorsalis pedis artery and left dorsalis pedis artery. 15:15 Skin: abscess, not appreciated, cellulitis, well demarcated, on the right bowman and right calf. 15:15 Neuro: Orientation: is normal, Mentation: is normal, Motor: is normal, moves all fours, strength is 5/5 in all extremities. Vital Signs: 14:30 BP 188 / 50; Pulse 77; Resp 17; Temp 100.1; Pulse Ox 98% ; Weight 112.94 kg; Height 6 ll1 ft. 2 in. (187.96 cm); Pain 2/10; 15:40 BP 126 / 71; Pulse 87; Resp 16 S; Pulse Ox 97% on R/A; ca1 16:50 BP 136 / 77; Pulse 71; Resp 16 S; Pulse Ox 98% on R/A; ca1 17:55 BP 111 / 57; Pulse 73; Resp 18 S; Pulse Ox 98% on R/A; ca1 18:55 BP 141 / 63; Pulse 77; Resp 16 S; Pulse Ox 100% on R/A; ca1 19:50 BP 100 / 83; Pulse 74; Resp 20 S; Pulse Ox 97% on R/A; ca1 20:45 BP 102 / 50; Pulse 69; Resp 20 S; Temp 98.9(TE); Pulse Ox 95% on R/A; ca1 14:30 Body Mass Index 31.97 (112.94 kg, 187.96 cm) ll1 MDM: 14:58 Patient medically screened. cheryl 17:08 Data reviewed: vital signs. Data interpreted: Pulse oximetry: on room air is 98 %. pm1 Interpretation: normal. 17:16 Counseling: I had a detailed discussion with the patient and/or guardian regarding: the pm1 historical points, exam findings, and any diagnostic results supporting the discharge/admit diagnosis, lab results, radiology results, the need for further work-up and treatment in the hospital. 17:21 Physician consultation: Fletcher REEDER was called at 17:22, was contacted at 17:22, pm1 regarding admission, patient's condition, and will see patient in ED. 01/12 15:01 Order name: Basic Metabolic Panel pm1 01/12 15:01 Order name: CBC with Diff pm1 01/12 15:01 Order name: LFT's pm1 01/12 15:01 Order name: Magnesium; Complete Time: 16:27 pm1 01/12 15:01 Order name: NT PRO-BNP; Complete Time: 16:27 pm1 01/12 15:01 Order name: PT-INR; Complete Time: 16:27 pm1 01/12 15:01 Order name: Troponin (emerg Dept Use Only); Complete Time: 16:27 pm1 01/12 15:01 Order name: Blood Culture Adult (2) pm1 01/12 15:01 Order name: Procalcitonin; Complete Time: 17:08 pm1 01/12 15:01 Order name: Lactate; Complete Time: 16:27 pm1 01/12 15:02 Order name: Basic Metabolic Panel; Complete Time: 16:27 EDMS 01/12 15:02 Order name: CBC with Automated Diff; Complete Time: 18:14 EDMS 01/12 15:02 Order name: Liver (Hepatic) Function; Complete Time: 16:27 EDMS 01/12 15:01 Order name: XRAY Chest (1 view); Complete Time: 17:08 pm1 01/12 15:01 Order name: EKG; Complete Time: 15:02 pm1 01/12 15:01 Order name: Cardiac monitoring; Complete Time: 15:30 pm1 01/12 15:01 Order name: EKG - Nurse/Tech; Complete Time: 15:30 pm1 01/12 15:01 Order name: IV Saline Lock; Complete Time: 15:07 pm1 01/12 15:01 Order name: Labs collected and sent; Complete Time: 15:07 pm1 01/12 15:01 Order name: O2 Per Protocol; Complete Time: 15:07 pm1 01/12 15:01 Order name: O2 Sat Monitoring; Complete Time: 15:07 pm1 01/12 15:01 Order name: CT Head Brain wo Cont; Complete Time: 17:08 pm1 01/12 15:01 Order name: US Extremity Venous Unilateral Ltd; Complete Time: 18:14 pm1 01/12 17:16 Order name: SARS-COV-2 RT PCR; Complete Time: 17:18 EDMS 01/12 18:12 Order name: CBC Smear Scan; Complete Time: 18:14 EDMS Administered Medications: 15:49 Drug: Cefepime 2 grams Route: IVPB; Rate: 200 ml/hr; Infused Over: 30 mins; Site: right ca1 antecubital; 16:47 Follow up: Response: No adverse reaction; IV Status: Completed infusion ca1 16:47 Drug: vancoMYCIN 1 grams Route: IVPB; Infused Over: 2 hrs; Site: right antecubital; ca1 18:20 Follow up: Response: No adverse reaction; IV Status: Completed infusion ca1 16:55 Drug: Tetanus-Diphtheria Toxoid Adult 0.5 ml {Gas Leak Inspector: [employer]. Exp: ca1 02/04/2022. Lot #: [id number]. } Route: IM; Site: right deltoid; 18:20 Follow up: Response: No adverse reaction ca1 Disposition: 01/13 07:40 Co-signature as Attending Physician, Yohan Johnson MD I agree with the assessment and cheryl plan of care. Disposition: 01/12/21 17:18 Hospitalization ordered by Fly Rivera for Inpatient Admission. Preliminary diagnosis is Cellulitis of right lower limb. - Bed requested for Telemetry/MedSurg (Inpatient). - Status is Inpatient Admission. ca1 - Condition is Stable. - Problem is new. - Symptoms have improved. Signatures: Dispatcher [employer] EDCA Yohan Johnson MD MD cha Attema, Fletcher, WREATH MACHINE OPERATOR-C WREATH MACHINE OPERATOR-Cla1 Nicole Balderrama, RN RN cg Soren Olea, POLICE OFFICER CRIME PREVENTION POLICE OFFICER CRIME PREVENTION pm1 Adriana Nina RN RN ca1 Pardeep Gleason RN RN ll1 Corrections: (The following items were deleted from the chart) 01/12 16:35 16:30 CORONAVIRUS+MR.LAB.BRZ ordered. [facility] EDCA 20:30 17:18 Hospitalization Ordered by Fly Rivera MD for Inpatient Admission. Preliminary cg diagnosis is Cellulitis of right lower limb. Bed requested for Telemetry/MedSurg (Inpatient). Status is Inpatient Admission. Condition is Stable. Problem is new. Symptoms have improved. pm1 21:14 20:30 01/12/2021 17:18 Hospitalization Ordered by Fly Rivera MD for Inpatient ca1 Admission. Preliminary diagnosis is Cellulitis of right lower limb. Bed requested for Telemetry/MedSurg (Inpatient). Status is Inpatient Admission. Condition is Stable. Problem is new. Symptoms have improved. cg
--- NOTE | 2021-01-12 18:01 | RAD REPORT ---
EXAM DESCRIPTION: US - Extremity Venous Uni Ltd - 01/12/2021 5:30 pm CLINICAL HISTORY: SWELLING, right lower extremity pain COMPARISON: None. TECHNIQUE: Real-time sonographic evaluation of the right lower extremity deep venous systems was per formed. FINDINGS: Normal compressibility, flow augmentation, phasic flow and spontaneous flow are identified in the right lower extremity common femoral, superficial femoral, popliteal and posterior tibial vei ns. No intraluminal filling defects seen. IMPRESSION: No DVT in the right lower extremity.
[2021-01-12 18:12] LABS: White Blood Cell Scan OK (OK)
[2021-01-12 18:13] LABS: Anisocytosis 1+; Blood Morphology Comment NOTED (NOT SEEN); Platelet Estimate ADEQ; Poikilocytosis 1+
--- NOTE | 2021-01-12 19:30 | P.HP ---
Certification for Inpatient Patient admitted to: Inpatient With expected LOS: >2 Midnights Patient will require the following post-hospital care: None Practitioner: I am a practitioner with admitting privileges, knowledge of patient current condition, hospital course, and medical plan of care. Services: Services provided to patient in accordance with Admission requirements found in Title 42 Section 412.3 of the Code of Federal Regulations Patient History Date of Service: 01/12/21 Primary Care Provider: Dr. Holden, cardiology dr. fitzgerald Reason for admission: Cellulitis right lower extremity History of Present Illness: 80-year-old male history of hypertension, hyperlipidemia, CAD, prostate cancer presents emergency department for swelling and redness of the right lower extremity. Patient evaluated in the emergency department, labs significant for white blood cell count 20.2 sodium 132 GFR 70 then which is similar to his baseline glucose 129 lactic acid 1.3 T. bili 1.1 d bili 0.3 BNP 1393 pro calcitonin 0.07 DVT study the right lower extremity negative. Patient reports that he sustained a small cut to the right lower extremity approximately 1 week prior when he bumped into something, since then he has noticed increasing redness and swelling to the right lower extremity. Patient with multiple previous admissions for cellulitis requiring usually 4-5 days of admission. ED provider wishes to admit for further evaluation and management of cellulitis of the right lower extremity. Patient does not appear septic at this time, heart rate within normal limits, normotensive, lactic acid normal. Allergies No Known Allergies Allergy (Verified 12/30/17 22:43) Home Medications: Aspirin [Aspirin EC 81 MG] 81 mg PO DAILY 12/31/17 Atorvastatin Calcium [Lipitor] 40 mg PO BEDTIME 12/31/17 Famotidine/Ca Carb/Mag Hydrox [Pepcid Complete Tablet Chew] 1 each PO PRN PRN 12/31/17 Metoprolol Tartrate [Lopressor*] 50 mg PO BID 12/31/17 Valsartan [Diovan*] 160 mg PO DAILY 12/31/17 Amoxicillin Trihydrate [Amoxil] 875 mg PO BID #30 capsule 01/02/18 - Past Medical/Surgical History Diabetic: No -: HTN -: Hyperlipidemia -: PVD -: CAD, Cardiology -: Prostate/Bladder Cancer post surgery. -: Prostate/Bladder surgery 2005 -: Cholecystectomy -: Bilateral inguinal hernia RPAIR >10YRS -: Heart stent X 2 2004 -: TONSILECTOMY -: SKIN CANCER REMOVAL -: LEFT WRIST FRACTURE REPAIR -: APPENDECTOMY>10 Psychosocial/ Personal History: of 51 years, Children-1, Retired [employer] employee. - Family History Mother -: Other (see notes) Sister -: Heart disease, Cancer - Social History Smoking Status: Former smoker Alcohol use: No CD- Drugs: No Caffeine use: No Place of Residence: Home Review of Systems 10-point ROS is otherwise unremarkable General: Malaise Musculoskeletal: Leg Pain Integumentary: Other (Cellulitis right lower extremity), As per HPI Neurological: Weakness Physical Examination - Physical Exam General: Alert, In no apparent distress, Oriented x3 HEENT: Atraumatic, PERRLA, Mucous membr. moist/pink Neck: Supple Respiratory: Clear to auscultation bilaterally, Normal air movement Cardiovascular: No edema, Regular rate/rhythm, Normal S1 S2 Capillary refill: <2 Seconds Gastrointestinal: Normal bowel sounds, No tenderness Musculoskeletal: Erythema, Tenderness (Right lower extremity), Warmth Integumentary: Erythema, Warmth Neurological: Normal speech, Normal strength at 5/5 x4 extr, Normal tone, Normal affect - Studies Laboratory Data (last 24 hrs) 01/12/21 15:13: PT 14.0 H, INR 1.21 01/12/21 15:13: WBC 20.20 H*, Hgb 14.0, Hct 41.9, Plt Count 185 01/12/21 15:13: Sodium 132 L, Potassium 3.6, BUN 15, Creatinine 1.02, Glucose 129 H, Magnesium 2.1, Total Bilirubin 1.1 H, AST 12 L, ALT 22, Alkaline Phosphatase 77 Assessment and Plan - Plan Assessment Leukocytosis, cellulitis of the right lower extremity Hypertension, hyperlipidemia, CAD Plan Leukocytosis, cellulitis of the right lower extremity: Continue with vancomycin, cefepime IV therapy at this time, daily labs. Negative for DVT to the right lower extremity. Pro calcitonin mildly elevated, patient with multiple episodes of cellulitis in the past. DVT prophylaxis Lovenox 40 mg subcutaneous once daily. Anticipate clinical improvement next 48-72 hr. Hypertension, hyperlipidemia, CAD: Obtain and continue home medications as appropriate, adjust as necessary. Discharge Plan: Home Plan to discharge in: Greater than 2 days - Advance Directives Does patient have a Living Will: No Does patient have a Durable POA for Healthcare: No - Code Status/Comfort Care Code Status Assessed: Yes (Full code) Critical Care: No Time Spent Managing Pts Care (In Minutes): 55
[2021-01-12] MEDS ORDERED: ONDANSETRON 4 MG/2 ML VIAL IV PRN (21:21)
[2021-01-12] MEDS ORDERED: TRAMADOL HCL 50 MG TAB PO PRN (21:21)
[2021-01-12] MEDS ORDERED: ACETAMINOPHEN 500 MG TAB PO PRN (21:21)
[2021-01-12] MEDS ORDERED: CEFEPIME 1 GM/VIAL IV SCH (21:21)
[2021-01-12 21:42] VITALS: BMI 32.1
[2021-01-12] MEDS ORDERED: VANCOMYCIN 1 GM in NA CHLORIDE 0.9% 250 ML IVPB ONE (22:00)
[2021-01-12] MEDS: NA CHLORIDE 0.9% 1,000 ML IV SCH (22:01)
[2021-01-12] MEDS ORDERED: VANCOMYCIN 1 GM/VIAL ONE (22:15)
[2021-01-12] MEDS ORDERED: NA CHLORIDE 0.9% 250 ML ONE (22:16)
[2021-01-12 22:41] LABS: Urine Appearance CLEAR (Clear); Urine Bilirubin NEGATIVE (Negative); Urine Blood NEGATIVE (Negative); Urine Color YELLOW (Yellow); Urine Glucose NEGATIVE (Negative); Urine Protein NEGATIVE (Negative); Urine Specific Gravity 1.025 (1.005-1.030); Urine Urobilinogen 0.2 mg/dL (0.2-1.0)
[2021-01-12 23:02] LABS: Urine Microscopic Reflex NO UMIC
[2021-01-13] MEDS ORDERED: CEFEPIME/SWI 1gm 10 ML ONE (03:16)
[2021-01-13] MEDS: CEFEPIME/SWI 1gm 10 ML IVP SCH ×2 (03:58→15:34)
[2021-01-13 04:29] LABS: Absolute Lymphocytes (CBC) 1.9 K/uL (0.7-4.9); Basophils % 0.5 % (0-1.3); Hematocrit 35.6 % (39.6-49.0); Lymphocytes % 15.1 % (15.3-44.8); MPV 9.6 fL (7.6-11.3); RBC Red Blood Cell Count 3.96 M/uL (4.33-5.43)
[2021-01-13] MEDS ORDERED: MAG HYDROX PO PRN (05:09)
[2021-01-13] MEDS ORDERED: [UNRECOGNIZED DRUG - OTHER] PO PRN (05:09)
[2021-01-13] MEDS ORDERED: CA CARB PO PRN (05:09)
[2021-01-13] MEDS ORDERED: FAMOTIDINE PO PRN (05:09)
[2021-01-13 05:12] LABS: Potassium 3.5 mmol/L (3.5-5.1); Protein, Total 6.3 g/dL (6.4-8.2); Thyroid Stimulating Hormone 0.54 uIU/mL (0.360-3.740)
[2021-01-13] MEDS ORDERED: POTASSIUM CL SA 10 MEQ TAB PO ONE ×2 (05:24→20:00)
[2021-01-13] MEDS ORDERED: FAMOTIDINE 20 MG/2 ML VIAL IV ONE (05:36)
[2021-01-13] MEDS: LOSARTAN POTASSIUM 50 MG TABLET PO SCH (09:10)
[2021-01-13] MEDS: ASPIRIN EC 81 MG TAB PO SCH (09:10)
[2021-01-13] MEDS: ATORVASTATIN 20 MG TAB PO SCH (09:11)
[2021-01-13] MEDS: AMLODIPINE 5 MG TAB PO SCH (09:11)
[2021-01-13] MEDS: METOPROLOL TAR 50 MG TAB PO SCH ×2 (09:11→20:53)
[2021-01-13] MEDS: ENOXAPARIN 40 MG/0.4 ML SQ SCH (09:12)
[2021-01-13] MEDS: NA CHLORIDE 0.9% 1,000 ML IV SCH (12:35)
--- NOTE | 2021-01-13 14:46 | P.PN ---
Subjective Date of Service: 01/13/21 Primary Care Provider: Dr. Holden, cardiology dr. fitzgerald Chief Complaint: Cellulitis right lower extremity Subjective: Improving (feels better, redness has improved somewhat, no new complaints) Review of Systems 10-point ROS is otherwise unremarkable Physical Examination - Vital Signs Temperature: 97.8 F Blood Pressure: 141/60 Pulse: 60 Respirations: 18 Pulse Ox (%): 98 - Studies Laboratory Data (last 24 hrs) 01/12/21 15:13: PT 14.0 H, INR 1.21 01/12/21 15:13: WBC 20.20 H*, Hgb 14.0, Hct 41.9, Plt Count 185 01/12/21 15:13: Sodium 132 L, Potassium 3.6, BUN 15, Creatinine 1.02, Glucose 129 H, Magnesium 2.1, Total Bilirubin 1.1 H, AST 12 L, ALT 22, Alkaline Phosphatase 77 Assessment & Plan Physician Review Additional Text: Physical Exam General: Alert, In no apparent distress, Oriented x3 Respiratory: Clear to auscultation bilaterally, Normal air movement Cardiovascular: No edema, Regular rate/rhythm, Normal S1 S2 Capillary refill: <2 Seconds Gastrointestinal: soft, nontender, nondistended Integumentary: RLE: erythema and warmth in lower leg. prolene sutures in r lower leg Problem List Leukocytosis, cellulitis of the right lower extremity Hypertension Hyperlipidemia CAD -continue vanc & cefepime, leukocytosis improved, erythema improving -h/o multiple episodes of cellulitis in past -no abscess on exam -continue home medications -anticipate dc home in the next 24-48hrs Time Spent Managing Pts Care (In Minutes): 35
[2021-01-13] MEDS: VANCOMYCIN 2 GM in NA CHLORIDE 0.9% 500 ML IVPB SCH (15:34)
[2021-01-14] MEDS: CEFEPIME/SWI 1gm 10 ML IVP SCH (03:46)
[2021-01-14 04:26] LABS: Absolute Lymphocytes (CBC) 1.7 K/uL (0.7-4.9); Basophils % 0.7 % (0-1.3); Hematocrit 35.3 % (39.6-49.0); Lymphocytes % 19.7 % (15.3-44.8); MPV 10.1 fL (7.6-11.3); RBC Red Blood Cell Count 3.92 M/uL (4.33-5.43)
[2021-01-14 04:36] LABS: ALT/SGPT 24 U/L (12-78); AST/SGOT 18 U/L (15-37); Alkaline Phosphatase 71 U/L (45-117); BUN Blood Urea Nitrogen 12 mg/dL (7-18); Bicarbonate 27 mmol/L (21-32); Bilirubin Total 0.6 mg/dL (0.2-1.0); Glucose Level 99 mg/dL (74-106); Potassium 4.6 mmol/L (3.5-5.1); Protein, Total 6.4 g/dL (6.4-8.2); Sodium Level 140 mmol/L (136-145)
[2021-01-14] MEDS: ENOXAPARIN 40 MG/0.4 ML SQ SCH (09:00)
[2021-01-14] MEDS: METOPROLOL TAR 50 MG TAB PO SCH (09:17)
[2021-01-14] MEDS: ATORVASTATIN 20 MG TAB PO SCH (09:17)
[2021-01-14] MEDS: AMLODIPINE 5 MG TAB PO SCH (09:17)
[2021-01-14] MEDS: ASPIRIN EC 81 MG TAB PO SCH (09:17)
[2021-01-14] MEDS: LOSARTAN POTASSIUM 50 MG TABLET PO SCH (09:17)
[2021-01-14] MEDS: VANCOMYCIN 2 GM in NA CHLORIDE 0.9% 500 ML IVPB SCH (10:54)
--- NOTE | 2021-01-14 12:27 | P.DS ---
Admission Date: 01/12/21 Discharge Date: 01/14/21 Primary Care Provider: Dr. Holden, cardiology dr. fitzgerald Disposition: ROUTINE DISCHARGE Discharge Condition: FAIR Reason for Admission: Cellulitis right lower extremity - Problems (1) Cellulitis of right leg Onset Date: 02/14/16 Current Visit: No Status: Acute (2) HTN (hypertension) Onset Date: 02/14/16 Current Visit: No Status: Chronic Qualifiers: Hypertension type: essential hypertension Qualified Code(s): I10 - Essential (primary) hypertension (3) PVD (peripheral vascular disease) Onset Date: 02/14/16 Current Visit: No Status: Chronic Brief History of Present Illness: 80-year-old gentleman with a history of hypertension and peripheral vascular disease presented to the emergency department with a complaint of swelling and redness of the right lower extremity. Patient reports sustaining a cut to the leg about 1 week ago, developed swelling and redness which progressively got worse. In the emergency department patient noted to have severe leukocytosis, afebrile and did not meet criteria for sepsis. Patient admitted for further management of lower extremity cellulitis. Hospital Course: Patient admitted to the medical floor and treated with IV vancomycin and cefepime. Blood cultures yielded no growth. His lower extremity swelling and redness significantly improved to treatment. Patient denied any pain. Vital stable, afebrile, leukocytosis resolved. Patient has clinically improved, bearing weight on the leg without any problem, and stable for discharge. He is discharged with oral Augmentin to continue treatment for the cellulitis. Vital Signs/Physical Exam: Temp Pulse Resp BP Pulse Ox 97.4 F 57 18 138/63 98 01/14/21 08:00 01/14/21 08:00 01/14/21 08:00 01/14/21 08:00 01/14/21 08:00 General: Alert, In no apparent distress, Oriented x3 HEENT: Mucous membr. moist/pink Respiratory: Clear to auscultation bilaterally, Normal air movement Cardiovascular: No edema, Regular rate/rhythm, Normal S1 S2 Gastrointestinal: Soft and benign, Non-distended Musculoskeletal: No swelling Integumentary: Erythema (Anterior right knee) Neurological: Normal speech, Normal strength at 5/5 x4 extr Laboratory Data at Discharge: WBC 8.70 K/uL (4.3-10.9) D 01/14/21 04:02 Hgb 12.0 g/dL (13.6-17.9) L 01/14/21 04:02 Hct 35.3 % (39.6-49.0) L 01/14/21 04:02 Plt Count 139 K/uL (152-406) L 01/14/21 04:02 PT 14.0 SECONDS (9.5-12.5) H 01/12/21 15:13 INR 1.21 01/12/21 15:13 Sodium 140 mmol/L (136-145) 01/14/21 04:02 Potassium 4.6 mmol/L (3.5-5.1) 01/14/21 04:02 BUN 12 mg/dL (7-18) 01/14/21 04:02 Creatinine 0.77 mg/dL (0.55-1.3) 01/14/21 04:02 Glucose 99 mg/dL (74-106) 01/14/21 04:02 Magnesium 2.1 mg/dL (1.8-2.4) 01/12/21 15:13 Total Bilirubin 0.6 mg/dL (0.2-1.0) 01/14/21 04:02 AST 18 U/L (15-37) 01/14/21 04:02 ALT 24 U/L (12-78) 01/14/21 04:02 Alkaline Phosphatase 71 U/L (45-117) 01/14/21 04:02 Triglycerides 57 mg/dL (<150) 01/13/21 04:07 Cholesterol 96 mg/dL (<200) 01/13/21 04:07 HDL Cholesterol 56 mg/dL (40-60) 01/13/21 04:07 Cholesterol/HDL Ratio 1.71 01/13/21 04:07 Home Medications: Aspirin [Aspirin EC 81 MG] 81 mg PO DAILY 12/31/17 Famotidine/Ca Carb/Mag Hydrox [Pepcid Complete Tablet Chew] 1 each PO PRN PRN 12/31/17 Metoprolol Tartrate [Lopressor*] 50 mg PO BID 12/31/17 Amlodipine Besylate 1 tab PO DAILY 01/12/21 Losartan Potassium 100 mg PO DAILY 01/12/21 Simvastatin [Zocor] 40 mg PO DAILY 01/12/21 Amox/Clavulanate [Augmentin 875-125 Tab] 1 each PO BID #14 tab 01/14/21 traMADol HCL [Ultram*] 50 mg PO TID PRN #30 tab 01/14/21 New Medications: Amox/Clavulanate [Augmentin 875-125 Tab] 1 each PO BID #14 tab traMADol HCL [Ultram*] 50 mg PO TID PRN #30 tab PRN Reason: Pain Scale 5-7 (Moderate) Diet: AHA Activity: Ad vi Followup: Jan Holden MD [Primary Care Provider] - 1-2 Weeks (call to schedule an appointment ) Time spent managing pt's care (in minutes): 36
[2021-01-14 12:33] VITALS: O2SAT 98
[2021-01-14 12:44] VITALS: BP 148/69; TEMP 97.8
--- NOTE | 2021-01-15 12:06 | EKG ---
Test Date: 2021-01-12 Test Time: 15:26:50 Transplant Surgeon: TYESHA MEASUREMENT RESULTS: Intervals: Rate: 77 [place]: 170 QRSD: 80 QT: 392 QTc: 443 [place]: P: 3 [place]: 170 QRS: 37 T: 53 INTERPRETIVE STATEMENTS: Sinus rhythm with sinus arrhythmia with occasional premature ventricular complexes Nonspecific ST abnormality Abnormal ECG Compared to ECG 12/30/2017 18:05:29 Ventricular premature complex(es) now present ST (T wave) deviation now present Sinus tachycardia no longer present T-wave abnormality no longer present Possible ischemia no longer present Electronically Signed On 01-15-21 11:55:08 CDT by Leonel Torres
== END 2021-01-14 14:03 | disposition home or self-care (01) | DRG 603 ==
LOC: ER 14:15 → ERHOLD 19:15 → 2ND 20:52
PROVIDERS: ADMIT Hospitalist; ATTEND Internal Medicine
DX: L03.115 Cellulitis of right lower limb (principal); E78.5 Hyperlipidemia, unspecified; I73.9 Peripheral vascular disease, unspecified; I25.10 Atherosclerotic heart disease of native coronary artery without angina pectoris; I10 Essential (primary) hypertension; Z95.5 Presence of coronary angioplasty implant and graft; Z85.46 Personal history of malignant neoplasm of prostate; Z96.659 Presence of unspecified artificial knee joint; Z79.82 Long term (current) use of aspirin; Z79.899 Other long term (current) drug therapy; Z85.828 Personal history of other malignant neoplasm of skin; Z90.49 Acquired absence of other specified parts of digestive tract; Z87.891 Personal history of nicotine dependence; Z20.822 Contact with and (suspected) exposure to COVID-19
CPT/HCPCS: 36415; 70450; 71045; 80048; 80053; 80061; 80076; 80202; 81003; 83605; 83735; 83880; 84132; 84145; 84439; 84443; 84484; 85025; 85610; 87040; 90471; 90714; 93005; 93971; 96365; 96366; 96367; 97116; 97161; 99285; J0692; J1650; J3370; J7030; J7040; J7050; U0003